=== PATIENT | female | born 1950 | race Caucasian/White ===

== ENCOUNTER → 2016-12-28 | Outpatient (CLI) | payer BC ==
[2016-12-28 13:13] LABS: Blood Urea Nitrogen 17 mg/dL (7-17); Non-African American GFR(MDRD) 50 (>60 ml/min/1.73 sqM)
--- NOTE | 2016-12-28 13:42 | CT ---
EXAMINATION TYPE: CT angio chest DATE OF EXAM: 12/28/2016 1:34 PM COMPARISON: NONE HISTORY: Shortness of breath on and off for 2-[address] DLP: 482 mGycm CONTRAST: CT chest with contrast and 3D reconstruction with MIP imaging is performed with IV Contrast, patient injected with 80 mL of Visipaque 320. Contrast-enhanced CT of the chest was performed through the course of the pulmonary arteries with jose maria g and mediastinal window settings submitted. 3D reconstruction with MIP imaging was also performed. PULMONARY ARTERIES: The pulmonary arteries and their major tributaries are patent. I do not see al dence for sizable filling defect to suggest pulmonary embolic process. LUNGS: The lungs are clear and free of infiltrate. No evidence for atelectasis. No pulmonary nodule or mass is detected. No pleural effusion. Mild upper lobe emphysematous changes seen. MEDIASTINUM: Thoracic aorta is of normal caliber . The heart is not enlarged. No evidence for media stinal mass. No mediastinal lymph nodes greater than 1cm. HILAR STRUCTURES: No evidence for mass. No hilar lymph nodes greater than 1 cm. UPPER ABDOMEN: No significant abnormality is seen. IMPRESSION: 1. No evidence for Pulmonary embolism at this time.
== END ==
LOC: RADCTMAIN 12:26
PROVIDERS: ATTEND Family Medicine
DX: R06.02 Shortness of breath (principal)
CPT/HCPCS: 82565; 84520; 71275; 36415; Q9967

== ENCOUNTER → 2017-01-07 | Outpatient (CLI) | payer BC ==
--- NOTE | 2017-01-08 08:33 | ECHOF ---
Referral Reason:I10 Essential Primary Hypertension MEASUREMENTS -------- HEIGHT: 157.5 cm WEIGHT: 63.5 kg BP: 113/58 RVIDd: 2.2 cm (< 3.3) IVSd: 1.2 cm (0.6 - 1.1) LVIDd: 2.6 cm (3.9 - 5.3) LVPWd: 1.2 cm (0.6 - 1.1) IVSs: 1.5 cm LVIDs: 1.9 cm LVPWs: 1.6 cm LA Diam: 3.1 cm (2.7 - 3.8) LAESV Index (A-L): 19.59 ml/m Ao Diam: 2.5 cm (2.0 - 3.7) AV Cusp: 1.4 cm (1.5 - 2.6) LA Diam: 2.5 cm (2.7 - 3.8) MV EXCURSION: 8.460 mm (> 18.000) MV EF SLOPE: 44 mm/s (70 - 150) EPSS: 0.5 cm MV E Ion: 0.56 m/s MV DecT: 238 ms MV A Ion: 0.92 m/s MV E/A Ratio: 0.61 RAP: 5.00 mmHg RVSP: 24.47 mmHg FINDINGS -------- Sinus rhythm. This was a technically adequate study. The left ventricular size is normal. There is borderline concentric left ventricular hypertrophy. Overall left ventricular systolic function is normal with, an EF between 55 - 60 %. The right ventricle is normal in size. Normal LA size by volume 22+/-6 ml/m2. The right atrium is normal in size. Small perimembraneous VSD Aortic valve is trileaflet and is mildly thickened. There is mild aortic regurgitation. Mild mitral annular calcification present. There is trace to mild mitral regurgitation. Trace tricuspid regurgitation present. Right ventricular systolic pressure is normal at < 35 mmHg. Trace/mild (physiologic) pulmonic regurgitation. The aortic root, ascending aorta and aortic arch are normal. Normal inferior vena cava with normal inspiratory collapse consistent with estimated right atrial pressure of 5 mmHg. There is no pericardial effusion. CONCLUSIONS -------- 1. Sinus rhythm. 2. There is trace to mild mitral regurgitation. 3. Trace tricuspid regurgitation present. 4. Right ventricular systolic pressure is normal at < 35 mmHg. 5. Trace/mild (physiologic) pulmonic regurgitation. 6. The aortic root, ascending aorta and aortic arch are normal. 7. Normal inferior vena cava with normal inspiratory collapse consistent with estimated right atrial pressure of 5 mmHg. 8. There is no pericardial effusion. 9. This was a technically adequate study. 10. There is borderline concentric left ventricular hypertrophy. 11. Overall left ventricular systolic function is normal with, an EF between 55 - 60 %. 12. Normal LA size by volume 22+/-6 ml/m2. 13. Small perimembraneous VSD 14. Aortic valve is trileaflet and is mildly thickened. 15. There is mild aortic regurgitation. 16. Mild mitral annular calcification present. SHADOW GRAPH WEIGHT OPERATOR: Wayne Brand RDCS
== END | disposition home or self-care (01) ==
LOC: RADECHMAIN 15:20
PROVIDERS: ATTEND Family Medicine
DX: I08.1 Rheumatic disorders of both mitral and tricuspid valves (principal); I10 Essential (primary) hypertension
CPT/HCPCS: 93306

== ENCOUNTER → 2017-02-10 | Outpatient (CLI) | payer BC ==
--- NOTE | 2017-02-10 11:47 | CT ---
EXAMINATION TYPE: CT abdomen pelvis wo con DATE OF EXAM: 02/10/2017 11:41 AM COMPARISON: 04/11/2015 HISTORY: LLQ pain with nausea for 2-[address] DLP: 317.3 mGycm FINDINGS: LUNG BASES: No evidence for nodule. No evidence for infiltrate. LIVER/GB: Hepatic steatosis. Cholecystectomy clips are in place. No space-occupying hepatic lesion. PANCREAS: No pancreatic mass identified. No inflammatory process seen. SPLEEN: No evidence for splenomegaly. No intrasplenic lesions seen. Splenic ADRENALS: No adrenal nodules identified. No evidence for thickening. KIDNEYS: Mild atrophic change. Kidney. No evidence for renal mass. No nephrolithiasis. No hydronephro sis. BOWEL: Appendix has a normal appearance. Mild diverticulitis involving the mid descending colon with surrounding inflammatory change. No evidence of perforation or abscess. Remainder of the colon and small bowel are within normal limits. Lymph nodes: No evidence for adenopa thy greater than 1 cm. Abdominal aorta: Atheromatous changes seen. No evidence for aneurysm. Genital organs: No significant abnormality. Other: No significant abnormality. IMPRESSION: UNCOMPLICATED DIVERTICULITIS INVOLVING THE MID DESCENDING COLON.
== END | disposition home or self-care (01) ==
LOC: RADCTMAIN 11:21
PROVIDERS: ATTEND Family Medicine
DX: K57.32 Diverticulitis of large intestine without perforation or abscess without bleeding (principal)
CPT/HCPCS: 74176

== ENCOUNTER → 2018-02-17 | Outpatient (CLI) | payer MEDICARE ==
--- NOTE | 2018-02-17 14:00 | XR ---
Right foot HISTORY: Right foot pain, trauma yesterday 3 views of the right foot. There are degenerative changes of the first metatarsophalangeal joint. There is a lucency present at the proximal fifth metatarsal. Minimal displacement of an ossific fragment. There is soft tissue swel ling. IMPRESSION: Dancer's fracture.
== END | disposition home or self-care (01) ==
LOC: RADXRMAIN 11:34
PROVIDERS: ATTEND Physician Assistant
DX: S92.351A Displaced fracture of fifth metatarsal bone, right foot, initial encounter for closed fracture (principal)

== ENCOUNTER → 2018-03-14 | Outpatient (CLI) | payer MEDICARE ==
[2018-03-14 10:56] LABS: HCT 41.8 % (34.0-46.0); HGB 13.5 gm/dL (11.4-16.0); MCH 28.3 pg (25.0-35.0); MCHC 32.2 g/dL (31.0-37.0); MCV 88.1 fL (80.0-100.0); Mean Platelet Volume 6.4; Platelet Count 451 k/uL (150-450); RBC 4.75 m/uL (3.80-5.40); WBC 7.4 k/uL (3.8-10.6)
[2018-03-14 13:06] LABS: Erythrocyte Sedimentation Rate 48 mm/hr (0-20)
== END | disposition home or self-care (01) ==
LOC: LABWHC1 10:22 → EDSTATUS 10:25
PROVIDERS: ATTEND Orthopaedic Surgery
DX: M79.671 Pain in right foot (principal); M10.9 Gout, unspecified
CPT/HCPCS: 36415; 83520; 85027; 85652; 86140; 87070; 87075; 87205

== ENCOUNTER 2018-04-06 14:29 | Emergency (ER) | payer MEDICARE ==
[2018-04-06 14:41] VITALS: RESP 18
--- NOTE | 2018-04-06 14:43 | ED ---
General Adult HPI - General Chief complaint: Extremity Problem,Nontraumatic Stated complaint: Foot Pain Time Seen by Provider: 04/06/18 14:43 Source: patient Mode of arrival: ambulatory Limitations: no limitations - History of Present Illness Initial comments: Patient is a 67-year-old female with a history of gout diagnosed a couple of months ago. She reports she was treated with colchicine which resolved her symptoms for approximately a couple of weeks however over the past day she has noted worsening redness and pain in her right great toe. She reports that this is identical to previous episode of gout. Patient denies any recent trauma or injury. She denies any associated symptoms including fevers, chills, nausea, vomiting change in activity or appetite level. She states that she was told to treat the gout with NSAIDs but felt that Excedrin worked better for her discomfort so she did not take any NSAIDs after her previous diagnosis. - Related Data Home Medications Medication Instructions Recorded Confirmed Aspirin EC [Ecotrin Low Dose] 81 mg PO HS 04/06/18 04/06/18 Calcium Carbonate [Calcium] 600 mg PO DAILY 04/06/18 04/06/18 Docusate [Colace] 100 mg PO BID 04/06/18 04/06/18 Enalapril [Vasotec] 20 mg PO BID 04/06/18 04/06/18 Multivitamins, Thera [Multivitamin 1 tab PO DAILY 04/06/18 04/06/18 (formulary)] Rosuvastatin [Crestor] 20 mg PO HS 04/06/18 04/06/18 Ubidecarenone [Co Q-10] 100 mg PO DAILY 04/06/18 04/06/18 Previous Rx's Medication Instructions Recorded Colchicine 0.6 mg PO ONCE 1 Days #1 capsule 04/06/18 Indomethacin [Indocin] 50 mg PO TID #30 capsule 04/06/18 predniSONE 40 mg PO DAILY #15 tab 04/06/18 Allergies Allergy/AdvReac Type Severity Reaction Status Date / Time gluten Allergy Unknown Verified 04/06/18 14:58 Review of Systems ROS Statement: Those systems with pertinent positive or pertinent negative responses have been documented in the HPI. ROS Other: All systems not noted in ROS Statement are negative. Past Medical History Past Medical History: Diabetes Mellitus, Hyperlipidemia, Hypertension Additional Past Medical History / Comment(s): celiac disease, gout History of Any Multi-Drug Resistant Organisms: None Reported Past Surgical History: Appendectomy, Cholecystectomy, Hysterectomy, Tubal Ligation Past Psychological History: No Psychological Hx Reported Smoking Status: Never smoker Past Alcohol Use History: None Reported Past Drug Use History: None Reported General Exam Limitations: no limitations General appearance: alert, in no apparent distress Head exam: Present: atraumatic, normocephalic Eye exam: Present: PERRL ENT exam: Present: normal exam Neck exam: Present: normal inspection Respiratory exam: Absent: respiratory distress Cardiovascular Exam: Present: regular rate GI/Abdominal exam: Present: soft. Absent: distended Rectal exam: Present: deferred Right Foot/Toe exam: Present: tenderness, swelling, erythema. Absent: crepitus, puncture wound, foreign body 1 - Erythema and tenderness Neurological exam: Present: alert, oriented X3 Psychiatric exam: Present: normal affect, normal mood Skin exam: Present: warm, dry Course Vital Signs 04/06/18 04/06/18 14:37 16:10 Temperature 97.8 F 99.0 F Pulse Rate 80 88 Respiratory 18 18 Rate Blood Pressure 172/73 158/95 O2 Sat by Pulse 98 96 Oximetry Medical Decision Making - Medical Decision Making Patient was seen and evaluated, history was obtained from the patient The patient with recent gout exacerbation treated with colchicine, advised to take NSAIDs but chose not to The patient with recurrent episode of gout No systemic symptoms or evidence of septic joint Will treat as a gouty flare, I did have an extensive conversation with the patient regarding the need to treat with NSAIDs for gout rather than treating with Excedrin. Patient expressed understanding. Given the pain the patient is experiencing I will treat with steroids as well. Patient will be given first dose of colchicine and NSAIDs in the ER and discharged with prescriptions. All questions pertaining care were answered the best my ability patient was discharged home in stable condition Disposition Clinical Impression: Gout, Gout attack Disposition: HOME SELF-CARE Condition: Good Instructions: Gout (ED) Prescriptions: Colchicine 0.6 mg PO ONCE 1 Days #1 capsule Indomethacin [Indocin] 50 mg PO TID #30 capsule predniSONE 40 mg PO DAILY #15 tab Is patient prescribed a controlled substance at d/c from ED?: No Referrals: Eder Morton MD [Primary Care Provider] - 1-2 days Time of Disposition: 15:37
[2018-04-06] MEDS ORDERED: predniSONE 20 MG TAB PO STA (15:19)
[2018-04-06] MEDS ORDERED: INDOMETHACIN 25 MG CAP PO STA (15:20)
[2018-04-06] MEDS ORDERED: COLCHICINE 0.6 MG EACH PO SCH (15:30)
[2018-04-06 16:12] VITALS: BP 158/95; PULSE 88; TEMP 99
== END 2018-04-06 16:40 | disposition home or self-care (01) ==
LOC: EC 14:29
DX: M10.9 Gout, unspecified (principal); E78.5 Hyperlipidemia, unspecified; I10 Essential (primary) hypertension; Z79.82 Long term (current) use of aspirin; Z79.899 Other long term (current) drug therapy; Z91.048 Other nonmedicinal substance allergy status
CPT/HCPCS: 99283

== ENCOUNTER → 2018-06-28 | Outpatient (CLI) | payer MEDICARE ==
--- NOTE | 2018-06-29 10:23 | XR ---
Limited cervical spine HISTORY: Chronic pain, M 99.03, M99.01 3 views of the cervical spine is submitted. No comparisons Carotid artery calcifications are present. Multilevel facet arthropathy. Spondylosis is present at C5 -6, C6-7 associated loss of disc height. Loss of normal cervical lordosis is present. C7-T1 not seen. IMPRESSION: Degenerative disc disease and facet arthropathy. Loss of lordosis could be due to muscle spasm. Additional findings above.
--- NOTE | 2018-06-29 10:26 | XR ---
Lumbar spine HISTORY: M 99.01, chronic pain, M 99.03 3 views of the lumbar spine There is a mild levoscoliosis centered at L3. Surgical clips noted incidentally the right moderate. B asilar calcifications noted in aortoiliac distribution. Sclerosis is present in the posterior element s of the lower lumbar spine. Bone mineralization is reduced. Lumbar vertebral bodies show preserved h eight and alignment. Disc spaces mildly reduced at L2-3 and possibly L3-4. IMPRESSION: Degenerative disc disease and facet arthropathy, osteopenia, mild spinal curvature. Addit ional findings above.
== END | disposition home or self-care (01) ==
LOC: RADXRMAIN 15:37
PROVIDERS: ATTEND Chiropractor
DX: M51.36 Other intervertebral disc degeneration, lumbar region (principal); M46.96 Unspecified inflammatory spondylopathy, lumbar region; M85.88 Other specified disorders of bone density and structure, other site; M43.8X6 Other specified deforming dorsopathies, lumbar region; M50.30 Other cervical disc degeneration, unspecified cervical region
CPT/HCPCS: 72040; 72100

== ENCOUNTER → 2018-10-16 | Outpatient (CLI) | payer MEDICARE ==
--- NOTE | 2018-10-18 08:06 | MM ---
Reason for exam: screening (asymptomatic). Last mammogram was performed 1 year and 1 month ago. History: Patient is postmenopausal. Benign US biopsy breast VAD RT of the right breast, August 01, 2015. Physical Findings: A clinical breast exam by your physician is recommended on an annual basis and results should be correlated with mammographic findings. MG 3D Screening Mammo W/Cad Bilateral CC and MLO view(s) were taken. Prior study comparison: September 05, 2017, bilateral MG screening mammo w CAD. September 01, 2016, bilateral MG diagnostic mammo w CAD [place]. The breast tissue is heterogeneously dense. This may lower the sensitivity of mammography. Stable benign calcifications. There is no discrete abnormality. No significant changes when compared with prior studies. ASSESSMENT: Benign, BI-RAD 2 RECOMMENDATION: Routine screening mammogram of both breasts in 1 year.
== END | disposition home or self-care (01) ==
LOC: RADMAMWWP 11:43
PROVIDERS: ATTEND Family Medicine
DX: Z12.31 Encounter for screening mammogram for malignant neoplasm of breast (principal)
CPT/HCPCS: 77063; 77067

== ENCOUNTER → 2018-11-03 | Outpatient (CLI) | payer MEDICARE ==
--- NOTE | 2018-11-03 19:12 | ECHOF ---
Referral Reason:I10 Essential primary hypertension MEASUREMENTS -------- HEIGHT: 157.5 cm WEIGHT: 62.6 kg BP: RVIDd: 2.5 cm (< 3.3) IVSd: 0.9 cm (0.6 - 1.1) LVIDd: 3.8 cm (3.9 - 5.3) LVPWd: 0.9 cm (0.6 - 1.1) IVSs: 1.2 cm LVIDs: 2.5 cm LVPWs: 1.2 cm LAESV Index (A-L): 17.40 ml/m Ao Diam: 2.7 cm (2.0 - 3.7) AV Cusp: 1.5 cm (1.5 - 2.6) LA Diam: 3.1 cm (2.7 - 3.8) EPSS: 0.6 cm MV E Ion: 0.79 m/s MV DecT: 190 ms MV A Ion: 1.04 m/s MV E/A Ratio: 0.76 AR PHT: 454 ms RAP: 5.00 mmHg RVSP: 32.06 mmHg MV EF SLOPE: 71.01 mm/s (70 - 150) MV EXCURSION: 0.97 cm (> 18.000) FINDINGS -------- Sinus rhythm. This was a technically good study. The left ventricular size is normal. Left ventricular wall thickness is normal. Overall left vent ricular systolic function is normal with, an EF between 55 - 60 %. The right ventricle is normal in size and function. Normal LA size by volume 22+/-6 ml/m2. The right atrium is normal in size. Aortic valve is trileaflet and is mildly thickened. There is mild aortic regurgitation. There is no evidence of aortic stenosis. The mitral valve leaflets are mildly thickened. Mild mitral regurgitation is present. Excess mitr al valve chordae. Trace tricuspid regurgitation present. Right ventricular systolic pressure is normal at < 35 mmHg. There is no evidence of pulmonary hypertension. Trace/mild (physiologic) pulmonic regurgitation. The aortic root size is normal. Normal inferior vena cava with normal inspiratory collapse consistent with estimated right atrial pre ssure of 5 mmHg. There is no pericardial effusion. CONCLUSIONS -------- 1. Sinus rhythm. 2. This was a technically good study. 3. The left ventricular size is normal. 4. Left ventricular wall thickness is normal. 5. Overall left ventricular systolic function is normal with, an EF between 55 - 60 %. 6. Normal LA size by volume 22+/-6 ml/m2. 7. Aortic valve is trileaflet and is mildly thickened. 8. There is mild aortic regurgitation. 9. The mitral valve leaflets are mildly thickened. 10. Mild mitral regurgitation is present. 11. Excess mitral valve chordae. 12. Trace tricuspid regurgitation present. 13. Right ventricular systolic pressure is normal at < 35 mmHg. 14. There is no evidence of pulmonary hypertension. 15. Trace/mild (physiologic) pulmonic regurgitation. 16. The aortic root size is normal. 17. There is no pericardial effusion. SIGNAL TESTER: Brian Hummel RDCS
== END | disposition home or self-care (01) ==
LOC: RADECHMAIN 12:59
PROVIDERS: ATTEND Family Medicine
DX: I08.0 Rheumatic disorders of both mitral and aortic valves (principal)
CPT/HCPCS: 93306

== ENCOUNTER → 2018-11-06 | Outpatient (CLI) | payer MEDICARE ==
--- NOTE | 2018-11-06 13:23 | ECHOS ---
STRESS ECHOCARDIOGRAM DATE OF SERVICE: 11/06/2018 INDICATIONS: Chest pain. MEDICATIONS: BASELINE HEART RATE: 71 BASELINE BLOOD PRESSURE: 171/81 MAXIMUM HEART RATE: 140 MAXIMUM BLOOD PRESSURE: 199/89 85% MPHR: 131 100% MPHR: 154 METS: 7.0 MAXIMUM STAGE REACHED: II TOTAL EXERCISE TIME: 6 minutes CLINICAL INFORMATION: STRESS DATA: Pretesting physical examination showed a heart rate of 71 pressure is 171/81 mmHg. Baseline EKG showed sinus mechanism with ST changes in the inferolateral leads. The patient exercised on the treadmill according to Willam protocol for a total of 6 minutes and achieved 7.0 METs. Max heart rate was 140 which is about 91% of maximum predicted heart rate. Maximum blood pressure was 199/89 mmHg. Clinically, the patient did not have any symptoms of chest pain or shortness of breath during the testing or on recovery. The EKG on recovery showed about 1.[address]-segment depression. ECHOCARDIOGRAM IMAGES: On echocardiogram images from parasternal long axis view, parasternal short axis view, apical 4 chamber view and apical 2 chamber view were obtained as the baseline images, at the peak of the heart rate, as well as on recovery. The echocardiogram images showed good augmentation in the left ventricular systolic function without any evidence of wall motion abnormalities concerning for ischemia. CONCLUSION: 1. Average exercise tolerance. 2. Abnormal EKG in response to exercise, likely represent the worsening baseline EKG changes. 3. Normal echocardiogram in response to exercise. MMJAKEL / IJN: [id number] /
--- NOTE | 2018-11-06 17:10 | BD ---
EXAMINATION TYPE: Axial Bone Density DATE OF EXAM: 11/06/2018 COMPARISON: 04/07/2016 CLINICAL HISTORY: 68-year-old female asymptomatic postmenopausal screening Height: 62 IN Weight: 140 LBS FRAX RISK QUESTIONS: Family History (Parent hip fracture): YES MOTHER IN HER 80'S History of Fracture in Adulthood: RT FOOT AGE 67 RISK FACTORS HISTORY OF: Family History of Osteoporosis: MOTHER Active: YES Postmenopausal woman: AGE 54 TOTAL HYSTERECTOMY Take estrogen and/or progesterone medications: NOT NOW How long: TOOK HORMONES FROM AGE [age] MEDICATIONS: Additional Medications: CALCIUM, VIT D, ENALAPRIL, CRESTOR, MULTI VIT, BABY ASPIRIN, COQ10 EXAM MEASUREMENTS: Bone mineral densitometry was performed using the [employer] System. Bone mineral density as measured about the Lumbar spine is: ----- L1-L4(G/cm2): 1.008 T Score Values are as follows: ----- L2: -1.8 ----- L3: -0.7 ----- L4: -1.2 ----- L1-L4: -1.4 Bone mineral density has: Decreased -3.0% since study of: 04/07/2016 Bone mineral density about the R hip (g/cm2): 0.801 Bone mineral density about the L hip (g/cm2): 0.773 T Score values are as follows: -----R Neck: -1.7 -----L Neck: -1.9 -----R Total: -1.0 -----L Total: -0.8 Bone mineral density has: Increased 1.8% since study of: 04/07/2016 IMPRESSION: Osteopenia (T Score between -2.5 and -1). There is slightly increased risk of fracture and the patient may be considered for treatment. Re-Screen 2-5 years. NOTE: T-SCORE=SD OF THE YOUNG ADULT MEAN.
== END | disposition home or self-care (01) ==
LOC: RADBDWWP 07:09
PROVIDERS: ATTEND Family Medicine
DX: R94.31 Abnormal electrocardiogram [ECG] [EKG] (principal); R07.9 Chest pain, unspecified; M85.80 Other specified disorders of bone density and structure, unspecified site; Z78.0 Asymptomatic menopausal state
CPT/HCPCS: 77080; 93351

== ENCOUNTER → 2018-11-24 | Outpatient (CLI) | payer MEDICARE ==
--- NOTE | 2018-11-24 11:20 | US ---
EXAMINATION TYPE: US pelvic complete DATE OF EXAM: 11/24/2018 COMPARISON: CT 2017 CLINICAL HISTORY: R10.2 Pelvic Pain. Intermittent pelvic pain x couple months, 6, para 2, mis carriage 4, complete hysterectomy 13 years ago. TECHNIQUE: . Transabdominal sonographic images of the pelvis were acquired. Date of LMP: 13 years ago EXAM MEASUREMENTS: Uterus: surgically absent Endometrial Stripe: surgically absent Right Ovary: surgically absent Left Ovary: surgically absent 1. Uterus: surgically absent 2. Endometrium: surgically absent 3. Right Ovary: surgically absent 4. Left Ovary: surgically absent 5. Bilateral Adnexa: wnl 6. Posterior cul-de-sac: wnl IMPRESSION: Post surgical change with no free fluid or adnexal mass.
== END | disposition home or self-care (01) ==
LOC: RADUSWWP 10:58
PROVIDERS: ATTEND Family Medicine
DX: R10.2 Pelvic and perineal pain (principal); Z98.890 Other specified postprocedural states
CPT/HCPCS: 76857

== ENCOUNTER → 2018-12-27 | Day surgery (SDC) | payer MEDICARE ==
[2018-12-22 15:50] VITALS: BMI 25.2
[~2018-12-27] MED LIST: LACTATED RINGERS 1,000 ML IV SCH; LIDOCAINE 1% 20 ML VIAL (10MG/ML) FOR IV START INTRADERMA PRN; LIDOCAINE 1% INJ 10MG/ML (20 ML MDV) ONE; PROPOFOL 10 MG/ML 20 ML VIAL IV ONE
--- NOTE | 2018-12-27 08:03 | P.GSHP ---
History of Present Illness H&P Date: 12/27/18 CHIEF COMPLAINT: Colon screen HISTORY OF PRESENT ILLNESS: The patient is a 68-year-old female who presents for colon screen. Lower endoscopy was offered for further evaluation and management. PAST MEDICAL HISTORY: Please see list. PAST SURGICAL HISTORY: Please see list. MEDICATIONS: Please see list. ALLERGIES: Please see list. SOCIAL HISTORY: No illicit drug use FAMILY HISTORY: No reports of Crohn disease or ulcerative colitis. REVIEW OF ORGAN SYSTEMS: CONSTITUTIONAL: No reports of fevers or chills. PHYSICAL EXAM: VITAL SIGNS: Stable GENERAL: Well-developed pleasant in no acute distress. HEENT: No scleral icterus. Extraocular movements grossly intact. Moist buccal mucosa. NECK: Supple without lymphadenopathy. CHEST: Unlabored respirations. Equal bilateral excursions. CARDIOVASCULAR: Regular rate and rhythm. Distal 2+ pulses. ABDOMEN: Soft, nontender, nondistended. MUSCULOSKELETAL: No clubbing, cyanosis, or edema. ASSESSMENT: 1. Colon screen. PLAN: 1. Recommend proceeding with a lower endoscopy Past Medical History Past Medical History: Diabetes Mellitus, Hyperlipidemia, Hypertension Additional Past Medical History / Comment(s): Diet controlled diabetic, states last HgbA1C was 6.3, celiac disease, gout History of Any Multi-Drug Resistant Organisms: None Reported Past Surgical History: Appendectomy, Cholecystectomy, Hysterectomy, Tubal Ligation Additional Past Surgical History / Comment(s): COLONOSCOPY Past Anesthesia/Blood Transfusion Reactions: No Reported Reaction Smoking Status: Former smoker - Past Family History Father Family Medical History: Cancer Medications and Allergies Home Medications Medication Instructions Recorded Confirmed Type Aspirin EC [Ecotrin Low Dose] 81 mg PO HS 04/06/18 12/22/18 History Enalapril [Vasotec] 20 mg PO BID 04/06/18 12/22/18 History Multivitamins, Thera [Multivitamin 1 tab PO DAILY 04/06/18 12/22/18 History (formulary)] Rosuvastatin [Crestor] 20 mg PO HS 04/06/18 12/22/18 History Ubidecarenone [Co Q-10] 100 mg PO DAILY 04/06/18 12/22/18 History Calcium & Vitamin D 1 tab PO DAILY 12/22/18 History Cholecalciferol (Vitamin D3) 2,000 unit PO DAILY 12/22/18 12/22/18 History [Vitamin D3] Allergies Allergy/AdvReac Type Severity Reaction Status Date / Time gluten Allergy GI ISSUES Verified 12/22/18 15:33 R/T CELIAC
[2018-12-27 08:14] VITALS: RESP 16; TEMP 98
[2018-12-27 08:16] LABS: Glucose,Whole Blood 138 mg/dL (75-99)
--- NOTE | 2018-12-27 08:51 | P.PCN ---
Date of Procedure: 12/27/18 Description of Procedure: PREOPERATIVE DIAGNOSIS: Previous history of colon polyps Colonoscopy screening POSTOPERATIVE DIAGNOSIS: Previous history of colon polyps Colonoscopy screening Severe sigmoid diverticulosis with stricture at 30 cm External hemorrhoids. OPERATION: Colonoscopy to the sigmoid colon. SURGEON: Silvana Ugarte MD. ANESTHESIA: MAC. INDICATIONS: The patient is a 68-year-old female who presents for colonoscopy screening. Her last colonoscopy was more than 5 years ago. Benefits and risks were described and informed consent was obtained. DESCRIPTION OF PROCEDURE: The patient had undergone Gatorade, MiraLAX and Dulcolax prep. She had been brought into the operating room and laid in the left lateral decubitus position. After adequate intravenous sedation, the rectum was examined with 2% lidocaine jelly. External hemorrhoids were encountered. The rectal tone was loose. No lesions were palpated in the rectal vault. An adult Olympus colonoscope was advanced along the rectum to a very tortuous sigmoid colon. The scope was then exchanged for a pediatric colonoscope. Despite multiple maneuvers, the sigmoid colon had severe tortuosity preventing further advancement of scope. The scope was passed to 20 to 30 cm from the anal verge. No evidence of polyps were identified. As the patient posed high risk for perforation with persistence of the procedure, the procedure was discontinued. The colon was desufflated. The patient had tolerated the procedure well. Withdrawal time was over 6 minutes. FINDINGS: [place] preparation quality scale 1 (1-5) Tortuous sigmoid colon with stricture preventing further advancement of the scope. External prolapsed hemorrhoids. Scope advanced to sigmoid colon at 30 cm. No arteriovenous malformations. No adenomatous polyps. No focal colitis. RECOMMENDATIONS: Completion of colonoscopy evaluation with barium enema. Plan - Discharge Summary Discharge Rx Participant: No New Discharge Prescriptions: No Action Rosuvastatin [Crestor] 20 mg PO HS Multivitamins, Thera [Multivitamin (formulary)] 1 tab PO DAILY Enalapril [Vasotec] 20 mg PO BID Aspirin EC [Ecotrin Low Dose] 81 mg PO HS Ubidecarenone [Co Q-10] 100 mg PO DAILY Cholecalciferol (Vitamin D3) [Vitamin D3] 2,000 unit PO DAILY Calcium & Vitamin D 1 tab PO DAILY Discharge Medication List Aspirin EC [Ecotrin Low Dose] 81 mg PO HS 04/06/18 [History] Enalapril [Vasotec] 20 mg PO BID 04/06/18 [History] Multivitamins, Thera [Multivitamin (formulary)] 1 tab PO DAILY 04/06/18 [History] Rosuvastatin [Crestor] 20 mg PO HS 04/06/18 [History] Ubidecarenone [Co Q-10] 100 mg PO DAILY 04/06/18 [History] Calcium & Vitamin D 1 tab PO DAILY 12/22/18 [History] Cholecalciferol (Vitamin D3) [Vitamin D3] 2,000 unit PO DAILY 12/22/18 [History] Follow up Appointment(s)/Referral(s): Silvana Ugarte MD [STAFF PHYSICIAN] - 01/23/19 Patient Instructions/Handouts: Diverticulosis (DC), Barium Enema (DC), *Surgery [facility] - (Anesthesia) Endoscopy Discharge Instructions Activity/Diet/Wound Care/Special Instructions: Will need barium enema for completion colonoscopy Discharge Disposition: HOME SELF-CARE
[2018-12-27 09:28] VITALS: BP 161/79; PULSE 72
--- NOTE | 2018-12-27 11:40 | FL ---
EXAMINATION TYPE: FL barium enema w air contrast DATE OF EXAM: 12/27/2018 COMPARISON: CT abdomen and pelvis February 10, 2017 HISTORY: Incomplete colonoscopy TECHNIQUE: A double contrast barium enema study is performed. Total of 2 minutes 40 seconds of fluor oscopic time was utilized during procedure. 22 spot images are obtained. FINDINGS: Radius Corner Machine Operator view of the abdomen shows overall non-obstructive bowel gas pattern. Cholecystectomy clips are redemonstrated. Patient had lots of pain during enema study but contrast was successfully passed retrograde fashion t o the cecum. Evaluation suboptimal as patient has extensive diverticulosis particularly involving the sigmoid colon, in addition multiple spasms are identified during real-time performance. Appendix is not filled consistent with history of appendectomy. There is reflux of contrast into terminal ileum m aking evaluation suboptimal due to overlap. There is no obvious constricting lesion. Evaluation for p olyps is suboptimal due to above limitations particularly at level of sigmoid colon. No obvious signi ficant stricture is seen. IMPRESSION: Suboptimal study without constricting lesion or neoplasm present. Prominent sigmoid colo maryam diverticulosis redemonstrated.
== END | disposition home or self-care (01) ==
LOC: ORWHC2ENDO 07:45
PROVIDERS: ATTEND Surgery Plastic and Reconstructive Surgery
DX: Z12.11 Encounter for screening for malignant neoplasm of colon (principal); K56.699 Other intestinal obstruction unspecified as to partial versus complete obstruction; K57.30 Diverticulosis of large intestine without perforation or abscess without bleeding; K64.4 Residual hemorrhoidal skin tags; E11.9 Type 2 diabetes mellitus without complications; E78.5 Hyperlipidemia, unspecified; I10 Essential (primary) hypertension; K90.0 Celiac disease; M10.9 Gout, unspecified; Z79.82 Long term (current) use of aspirin; Z86.010 Personal history of colon polyps; Z87.891 Personal history of nicotine dependence
CPT/HCPCS: 74280; 45330; J2001; J2704; 45378

== ENCOUNTER → 2019-03-12 | Outpatient (CLI) | payer MEDICARE ==
[2019-03-12 15:33] LABS: Albumin 4.5 g/dL (3.5-5.0); Calcium 9.9 mg/dL (8.4-10.2); Potassium 4.4 mmol/L (3.5-5.1); Total Bilirubin 0.4 mg/dL (0.2-1.3); Total Protein 7.1 g/dL (6.3-8.2)
[2019-03-12 16:24] LABS: HCT 39.5 % (34.0-46.0); HGB 13.2 gm/dL (11.4-16.0); MCH 29.1 pg (25.0-35.0); MCHC 33.3 g/dL (31.0-37.0); MCV 87.3 fL (80.0-100.0); Mean Platelet Volume 7.3; Platelet Count 260 k/uL (150-450); RBC 4.53 m/uL (3.80-5.40); RDW 13.4 % (11.5-15.5); WBC 4.9 k/uL (3.8-10.6)
== END | disposition home or self-care (01) ==
LOC: LABPAT 14:26
PROVIDERS: ATTEND Surgery Plastic and Reconstructive Surgery
DX: K57.32 Diverticulitis of large intestine without perforation or abscess without bleeding (principal)
CPT/HCPCS: 36415; 80053; 85027; 86850; 86900; 86901

== ENCOUNTER 2019-05-02 17:30 | Inpatient (IN) | payer MEDICARE ==
--- NOTE | 2019-05-02 18:10 | ED ---
Abdominal Pain HPI - General Chief Complaint: Abdominal Pain Stated Complaint: Colon issues Time Seen by Provider: 05/02/19 17:59 Source: patient Mode of arrival: ambulatory Limitations: no limitations - History of Present Illness Initial Comments: 69-year-old female being sent by her surgeon for surgery prep. Patient has a history of extensive diverticulosis for which she will be having a colon resection on Tuesday. States he has a history of poor bowel prep secondary to her abnormal bowel movements. This is made it difficult for them to do colono scopies in the past. Currently denies any pain symptoms. She states her last bowel movement was yesterday. - Related Data Home Medications Medication Instructions Recorded Confirmed Enalapril [Vasotec] 20 mg PO BID 04/06/18 05/02/19 Rosuvastatin [Crestor] 20 mg PO HS 04/06/18 05/02/19 Ubidecarenone [Co Q-10] 100 mg PO DAILY 04/06/18 05/02/19 Calcium & Vitamin D 1 tab PO DAILY 12/22/18 05/02/19 Cholecalciferol (Vitamin D3) 2,000 unit PO DAILY 12/22/18 05/02/19 [Vitamin D3] DULoxetine HCL [Cymbalta] 60 mg PO HS 03/08/19 05/02/19 Vitamin B Complex 1 cap PO DAILY 05/02/19 05/02/19 Allergies Allergy/AdvReac Type Severity Reaction Status Date / Time gluten Allergy GI ISSUES Verified 05/02/19 18:36 R/T CELIAC Review of Systems ROS Statement: Those systems with pertinent positive or pertinent negative responses have been documented in the HPI. Review of Systems Constitutional: Denies fever, chills Eyes: Denies change in vision, Denies pain Ears, nose, mouth, throat: Denies headaches, Denies sore throat Cardiovascular: Denies chest pain. Denies palpitations Respiratory: Denies shortness of breath, Denies cough Gastrointestinal: Denies abdominal pain. Denies nausea, vomiting, diarrhea. Genitourinary: Denies hematuria, Denies infections Musculoskeletal: Denies pain, Denies swelling Integumentary: Denies rash Neurological: Denies headache, focal weakness, focal numbness Psychiatric: Denies anxiety, Denies depression Hematologic/Lymphatic: Denies easy bleeding or bruising ROS Other: All systems not noted in ROS Statement are negative. Past Medical History Past Medical History: Diabetes Mellitus, GERD/Reflux, Hyperlipidemia, Hypertension Additional Past Medical History / Comment(s): celiac disease, gout, diverticulitis, diet control diabetic, History of Any Multi-Drug Resistant Organisms: None Reported Past Surgical History: Appendectomy, Cholecystectomy, Ear Surgery, Hysterectomy, Tubal Ligation Additional Past Surgical History / Comment(s): rt ear surgery graft Past Anesthesia/Blood Transfusion Reactions: Motion Sickness Additional Past Anesthesia/Blood Transfusion Reaction / Comment(s): "i go under deeper" Past Psychological History: Anxiety Smoking Status: Former smoker Past Alcohol Use History: None Reported Past Drug Use History: None Reported - Past Family History Father Family Medical History: Cancer Mother Family Medical History: Congestive Heart Failure (CHF), Coronary Artery Disease (CAD), Diabetes Mellitus, Hyperlipidemia General Exam - General Exam Comments Initial Comments: General: Awake, alert, No acute Distress HENT: Normocephalic. Atraumatic Eyes: PERRL. EOMI. No scleral icterus. No injected conjunctiva Neck: Full ROM Chest/Lungs: Clear to auscultation bilaterally. No wheezing, rhonchi, or rales Cardiac: Regular rate, rhythm. No murmurs or rubs Abdomen/GI: Soft, nontender, nondistended. No rebound, guarding, or rigidity. Musculoskeletal: Full ROM Skin: Warm, dry, intact Neurologic: A/Ox3, no weakness, no sensory deficit, no abnormal gait, no coordination deficit Limitations: no limitations Course Vital Signs 05/02/19 05/02/19 17:34 19:03 Temperature 98 F Pulse Rate 77 67 Respiratory 18 18 Rate Blood Pressure 153/86 137/69 O2 Sat by Pulse 98 96 Oximetry Medical Decision Making - Medical Decision Making 79-year-old female presenting for admission. Initial exam the patient is awake, alert, no acute distress. VSS. Was sent in by Dr. Ugarte she's had difficulty with bowel for the past is currently scheduled for a colon resection this Tuesday. Dr. Ugarte who asked me to place her on IV fluids. Currently stable for transfer to floor. - Lab Data Result diagrams: 05/02/19 18:15 05/02/19 18:15 Disposition Clinical Impression: Chronic generalized abdominal pain Disposition: ADMITTED IP TO THIS HOSP Is patient prescribed a controlled substance at d/c from ED?: No Decision to Admit Reason: Admit from EC Decision Date: 05/02/19 Decision Time: 18:15
[2019-05-02] MEDS ORDERED: NALOXONE 0.4 MG/ML 1 ML VIAL IV PRN (18:13)
[2019-05-02] MEDS ORDERED: ACETAMINOPHEN TAB 325 MG TAB PO PRN (18:13)
[2019-05-02 18:33] LABS: Basophils % (A) 1 %; Eosinophils # (A) 0.2 k/uL (0-0.7); Eosinophils % (A) 4 %; HCT 41.6 % (34.0-46.0); HGB 13.9 gm/dL (11.4-16.0); Lymphocytes # (A) 1.8 k/uL (1.0-4.8); Lymphocytes % (A) 28 %; MCH 29.3 pg (25.0-35.0); MCHC 33.4 g/dL (31.0-37.0); MCV 87.7 fL (80.0-100.0); Mean Platelet Volume 6.7; Monocytes # (A) 0.5 k/uL (0-1.0); Monocytes % (A) 8 %; Neutrophils # (A) 3.7 k/uL (1.3-7.7); Neutrophils % (A) 57 %; Platelet Count 290 k/uL (150-450); RBC 4.74 m/uL (3.80-5.40); RDW 13.2 % (11.5-15.5); WBC 6.4 k/uL (3.8-10.6)
[2019-05-02 18:45] LABS: Prothrombin Time 10.7 sec (9.0-12.0)
[2019-05-02 18:46] LABS: Calcium 10.9 mg/dL (8.4-10.2); Potassium 4.2 mmol/L (3.5-5.1)
[2019-05-02] MEDS: SODIUM CHLORIDE 0.9% 1,000 ML IV SCH (19:00)
[2019-05-02 20:01] LABS: Glucose,Whole Blood 100 mg/dL (75-99)
[2019-05-02] MEDS ORDERED: ATORVASTATIN 40 MG TAB PO SCH (21:30)
[2019-05-02] MEDS ORDERED: LISINOPRIL 20 MG TAB PO STA (22:20)
[2019-05-02] MEDS ORDERED: CRESTOR 20 MG PO SCH (22:21)
[2019-05-02] MEDS: DULoxetine HCL 60 MG CAPSULE.DR PO SCH (22:26)
[2019-05-03] MEDS: ONDANSETRON 4 MG/2 ML VIAL IVP PRN ×2 (00:32→12:05)
[2019-05-03] MEDS: SODIUM CHLORIDE 0.9% 1,000 ML IV SCH ×5 (00:34→12:05)
[2019-05-03 07:05] LABS: Glucose,Whole Blood 106 mg/dL (75-99)
[2019-05-03] MEDS ORDERED: POLYETHYLENE GLYCOL LYTES SOLN 4,000 ML SOLN.RECON PO ONE (08:36)
[2019-05-03] MEDS ORDERED: Antibiotics per Pharmacy 1 EACH MISC MISCELLANE PRN ×2 (08:36→17:26)
[2019-05-03] MEDS ORDERED: NON FORMULARY DRUG (Vitamin B Complex [Vitamin B Complex] 1 CAP) PO SCH (09:00)
[2019-05-03] MEDS ORDERED: LISINOPRIL 20 MG TAB PO SCH (09:00)
[2019-05-03] MEDS ORDERED: CALCIUM CARB-VIT D 500MG-200UN 1 EACH TAB PO SCH (09:00)
[2019-05-03] MEDS ORDERED: NON FORMULARY DRUG (Ubidecarenone [Co Q-10] 100 MG) PO SCH (09:00)
[2019-05-03] MEDS ORDERED: CHOLECALCIFEROL 1,000 UNIT TAB PO SCH (09:00)
[2019-05-03] MEDS ORDERED: ENALAPRIL 20 MG PO SCH (10:00)
[2019-05-03 11:29] LABS: Glucose,Whole Blood 104 mg/dL (75-99)
--- NOTE | 2019-05-03 12:34 | P.PN ---
<Ricarda Cool Naomie - Last Filed: 05/03/19 12:32> Subjective Progress Note Date: 05/03/19 CHIEF COMPLAINT: History of diverticulitis HISTORY OF PRESENT ILLNESS: 69-year-old female who is scheduled for low anterior resection tomorrow with Dr. Ugarte secondary to history of diverticulitis. Patient examined this morning at the bedside. She denies abdominal pain. She reports feeling constipated. Tolerating clear liquid diet. Denies nausea or vomiting. PHYSICAL EXAM: VITAL SIGNS: Currently stable. GENERAL: Well-developed in no acute distress. HEENT: No sclera icterus. Extraocular movements grossly intact. Moist buccal mucosa. Head is atraumatic, normocephalic. Hears conversational speech. No nasal drainage. NECK: Supple without lymphadenopathy. CHEST: Non-labored respirations and equal bilateral excursions. CARDIOVASCULAR: Regular rate with regular rhythm. Palpable 2+ radial pulses. ABDOMEN: Soft. Nondistended. Nontender. MUSCULOSKELETAL: No clubbing, cyanosis or edema. NEUROLOGIC: No focal or lateralizing signs. Cranial nerves II through XII grossly intact. PSYCH: Appropriate affect. Alert and oriented to person, place and time. SKIN: Well perfused. Good skin turgor. ASSESSMENT: 1. History of diverticulitis PLAN: 1. Continue clear liquid diet for today. Nothing by mouth at midnight 2. 2 L normal saline bolus. Continue maintenance IV fluids 3. Enhanced bowel prep today including Nulytely, Flagyl, and Neomycin 4. Patient to undergo low anterior resection tomorrow with Dr. Ugarte Nurse practitioner note has been reviewed by physician. Signing provider agrees with the documented findings, assessment, and plan of care. Objective - Vital Signs Vital signs: Vital Signs Temp 97.4 F L 05/03/19 07:00 Pulse 74 05/03/19 07:00 Resp 17 05/03/19 07:00 BP 145/73 05/03/19 07:00 Pulse Ox 98 05/03/19 07:00 Intake & Output 05/02/19 05/03/19 05/03/19 18:59 06:59 18:59 Intake Total 250 Balance 250 Weight 58.967 kg Intake: Oral 250 Other: Voiding Method Toilet # Voids 0 - Labs CBC & Chem 7: 05/02/19 18:15 05/02/19 18:15 Labs: Abnormal Lab Results - Last 24 Hours (Table) 05/02/19 05/02/19 05/03/19 Range/Units 18:15 19:49 07:03 BUN 35 H (7-17) mg/dL Glucose 112 H (74-99) mg/dL POC Glucose (mg/dL) 100 H 106 H (75-99) mg/dL Calcium 10.9 H (8.4-10.2) mg/dL 05/03/19 Range/Units 11:18 BUN (7-17) mg/dL Glucose (74-99) mg/dL POC Glucose (mg/dL) 104 H (75-99) mg/dL Calcium (8.4-10.2) mg/dL <Silvana Ugarte N - Last Filed: 05/03/19 17:46> Subjective Principal diagnosis: Benefits and risks of the procedure described. Will repeat BMP. Bowel prep described. Objective - Vital Signs Vital signs: Vital Signs Temp 98.0 F 05/03/19 14:21 Pulse 70 05/03/19 14:21 Resp 17 05/03/19 14:21 BP 167/74 05/03/19 14:21 Pulse Ox 100 05/03/19 14:21 Intake & Output 05/02/19 05/03/19 05/03/19 18:59 06:59 18:59 Intake Total 250 1040 Balance 250 1040 Weight 58.967 kg Intake: Intake, IV Titration 900 Amount Sodium Chloride 0.9% 1, 800 000 ml @ 100 mls/hr IV . Q10H [facility] Rx#:[id number] metroNIDAZOLE-NS PMX 500 100 mg In Saline 1 100ml.bag @ 100 mls/hr IVPB TID@ 1300,1400,2300 [facility] Rx#: [id number] Oral 250 140 Other: Voiding Method Toilet # Voids 0 2 - Labs CBC & Chem 7: 05/02/19 18:15 05/03/19 14:59 Labs: Abnormal Lab Results - Last 24 Hours (Table) 05/02/19 05/02/19 05/03/19 Range/Units 18:15 19:49 07:03 Chloride (98-107) mmol/L BUN 35 H (7-17) mg/dL Glucose 112 H (74-99) mg/dL POC Glucose (mg/dL) 100 H 106 H (75-99) mg/dL Calcium 10.9 H (8.4-10.2) mg/dL 05/03/19 05/03/19 Range/Units 11:18 14:59 Chloride 110 H (98-107) mmol/L BUN (7-17) mg/dL Glucose (74-99) mg/dL POC Glucose (mg/dL) 104 H (75-99) mg/dL Calcium (8.4-10.2) mg/dL Assessment and Plan (1) Sigmoid volvulus Current Visit: Yes Status: Acute Code(s): K56.2 - VOLVULUS SNOMED Code(s): 370490120 (2) Intractable nausea and vomiting Current Visit: Yes Status: Acute Code(s): R11.2 - NAUSEA WITH VOMITING, UNSPECIFIED SNOMED Code(s): 420579511 (3) Celiac disease Current Visit: Yes Status: Acute Code(s): K90.0 - CELIAC DISEASE SNOMED Code(s): 445509710 (4) Diabetes type 2, controlled Current Visit: Yes Status: Acute Code(s): E11.9 - TYPE 2 DIABETES MELLITUS WITHOUT COMPLICATIONS SNOMED Code(s): 01484130 (5) Hyperlipidemia Current Visit: Yes Status: Acute Code(s): E78.5 - HYPERLIPIDEMIA, UNSPECIFIED SNOMED Code(s): 42767375 (6) Depressive disorder Current Visit: Yes Status: Acute Code(s): F32.9 - MAJOR DEPRESSIVE DISORDER, SINGLE EPISODE, UNSPECIFIED SNOMED Code(s): 50262600 (7) Hypertensive heart disease Current Visit: Yes Status: Acute Code(s): I11.9 - HYPERTENSIVE HEART DISEASE WITHOUT HEART FAILURE SNOMED Code(s): 58639824
[2019-05-03] MEDS ORDERED: metroNIDAZOLE 500 MG TAB PO SCH ×2 (13:00→23:00)
--- NOTE | 2019-05-03 13:08 | P.CONS ---
History of Present Illness - Reason for Consult Recommendations regarding antihypertensive medications - History of Present Illness His is a pleasant 69-year-old female admitted for scheduled low anterior res ection for significant diverticulitis chronic abdominal pain from diverticulitis patient at this time does have some pain bit constipated no diarrhea no nausea vomiting no fever or chills. Patient is presently on cefazolin and metronidazole which is being continued patient takes SARINA inhibitor at home patient is presently on lisinopril 40 twice a day which is a very high-dose and this will be held to prevent perioperative hypotension. Patient is low operative risk for laparotomy and bowel resection and patient function status is is good. denied any history of smoking Review of Systems REVIEW OF SYSTEMS: CONSTITUTIONAL: No fever, no malaise, no fatigue. HEENT: No recent visual problems or hearing problems. Denied any sore throat. CARDIOVASCULAR: No chest pain, orthopnea, PND, no palpitations, no syncope. PULMONARY: No shortness of breath, no cough, no hemoptysis. GASTROINTESTINAL: No diarrhea, no nausea, no vomiting, no abdominal pain. NEUROLOGICAL: No headaches, no weakness, no numbness. HEMATOLOGICAL: Denies any bleeding or petechiae. GENITOURINARY: Denies any burning micturition, frequency, or urgency. MUSCULOSKELETAL/RHEUMATOLOGICAL: Denies any joint pain, swelling, or any muscle pain. ENDOCRINE: Denies any polyuria or polydipsia. The rest of the 14-point review of systems is negative. Past Medical History Past Medical History: Diabetes Mellitus, GERD/Reflux, Hyperlipidemia, Hypertension Additional Past Medical History / Comment(s): celiac disease, gout, diverti culitis, diet control diabetic, History of Any Multi-Drug Resistant Organisms: None Reported Past Surgical History: Appendectomy, Cholecystectomy, Ear Surgery, Hysterectomy, Tubal Ligation Additional Past Surgical History / Comment(s): rt ear surgery graft Past Anesthesia/Blood Transfusion Reactions: Motion Sickness Additional Past Anesthesia/Blood Transfusion Reaction / Comm: "i go under deeper" Past Psychological History: Anxiety Smoking Status: Former smoker Past Alcohol Use History: None Reported Past Drug Use History: None Reported - Past Family History Father Family Medical History: Cancer Additional Family Medical History / Comment(s): neck and thoart cancer Mother Family Medical History: Congestive Heart Failure (CHF), Coronary Artery Disease (CAD), Diabetes Mellitus, Hyperlipidemia Medications and Allergies Home Medications Medication Instructions Recorded Confirmed Type Enalapril [Vasotec] 20 mg PO BID 04/06/18 05/02/19 History Rosuvastatin [Crestor] 20 mg PO HS 04/06/18 05/02/19 History Ubidecarenone [Co Q-10] 100 mg PO DAILY 04/06/18 05/02/19 History Calcium & Vitamin D 1 tab PO DAILY 12/22/18 05/02/19 History Cholecalciferol (Vitamin D3) 2,000 unit PO DAILY 12/22/18 05/02/19 History [Vitamin D3] DULoxetine HCL [Cymbalta] 60 mg PO HS 03/08/19 05/02/19 History Vitamin B Complex 1 cap PO DAILY 05/02/19 05/02/19 History Allergies Allergy/AdvReac Type Severity Reaction Status Date / Time gluten Allergy GI ISSUES Verified 05/02/19 18:36 R/T CELIAC Physical Exam Vitals: Vital Signs Temp Pulse Pulse Resp BP BP Pulse Ox 05/03/19 07:00 97.4 F L 74 17 145/73 98 05/03/19 04:06 18 05/03/19 02:53 97.7 F 71 18 155/67 98 05/03/19 00:35 16 05/02/19 20:18 98.0 F 60 17 107/64 93 L 05/02/19 19:40 16 05/02/19 19:03 67 18 137/69 96 05/02/19 17:34 98 F 77 18 153/86 98 Intake and Output 05/02/19 05/03/19 05/03/19 22:59 06:59 14:59 Intake Total 250 Balance 250 Intake: Oral 250 Other: Voiding Method Toilet Toilet # Voids 2 0 Weight 58.967 kg PHYSICAL EXAMINATION: GENERAL: The patient is alert and oriented x3, not in any acute distress. Well developed, well nourished. HEENT: Pupils are round and equally reacting to light. EOMI. No scleral icterus. No conjunctival pallor. Normocephalic, atraumatic. No pharyngeal erythema. No thyromegaly. CARDIOVASCULAR: S1 and S2 present. No murmurs, rubs, or gallops. PULMONARY: Chest is clear to auscultation, no wheezing or crackles. ABDOMEN: Soft, minimal tenderness in the left lower quadrant, nondistended, normoactive bowel sounds. No palpable organomegaly. MUSCULOSKELETAL: No joint swelling or deformity. EXTREMITIES: No cyanosis, clubbing, or pedal edema. NEUROLOGICAL: Gross neurological examination did not reveal any focal deficits. SKIN: No rashes. Results CBC & Chem 7: 05/02/19 18:15 05/02/19 18:15 Labs: Abnormal Lab Results - Last 24 Hours (Table) 05/02/19 05/02/19 05/03/19 Range/Units 18:15 19:49 07:03 BUN 35 H (7-17) mg/dL Glucose 112 H (74-99) mg/dL POC Glucose (mg/dL) 100 H 106 H (75-99) mg/dL Calcium 10.9 H (8.4-10.2) mg/dL 05/03/19 Range/Units 11:18 BUN (7-17) mg/dL Glucose (74-99) mg/dL POC Glucose (mg/dL) 104 H (75-99) mg/dL Calcium (8.4-10.2) mg/dL Assessment and Plan Plan: -Hypertension: Patient is expected to have low blood pressure postoperatively because of which I'll hold off on 9 lisinopril at this time. -Diverticulitis: Patient will undergo low anterior resection and hemicolectomy tomorrow and patient will be continued on ceftezole and and metronidazole -Gastroesophageal reflux disease - hyperlipidemia: Continue with the statin -Depression continue with Loxitane
[2019-05-03] MEDS: NEOMYCIN 500 MG TAB PO SCH ×3 (13:39→23:10)
[2019-05-03] MEDS: metroNIDAZOLE-NS PMX 500 MG in SALINE 1 100ML.BAG IVPB SCH ×3 (13:39→23:17)
[2019-05-03 15:28] LABS: Calcium 9.9 mg/dL (8.4-10.2); Potassium 4.5 mmol/L (3.5-5.1)
[2019-05-03] MEDS ORDERED: ONDANSETRON 4 MG/2 ML VIAL IVP PRN (15:36)
[2019-05-03] MEDS: HEPARIN SODIUM,PORCINE 5,000 UNIT/ML 1 ML VIAL SQ SCH ×2 (16:35→23:11)
[2019-05-03 16:57] LABS: Glucose,Whole Blood 97 mg/dL (75-99)
--- NOTE | 2019-05-03 17:45 | P.GSHP ---
History of Present Illness H&P Date: 05/02/19 CHIEF COMPLAINT: Abdominal pain HISTORY OF PRESENT ILLNESS: The patient is a 69-year-old female who comes in with new left lower quadrant abdominal pain of dull and crampy in nature. In the past, she had attempted colonoscopy but was unsuccessful given the severity of volvulus of sigmoid colon. Barium enema confirmed moderate redundancy of sigmoid colon. She recently developed acute nausea and vomiting after being on antibiotics. She has history of diabetes type 2 well-controlled. She also reports celiac disease and being on a specialty diet. No reports of fevers or chills. She is also on a high protein shake diet for last 2 weeks. As a result of her abdominal pain including new nausea and vomiting, she has been admitted. PAST M.ICAL HISTORY: See list. PAST SURGICAL HISTORY: See list. MEDICATIONS: See list. ALLERGIES: See list. SOCIAL HISTORY: No illicit drug use FAMILY HISTORY: No reports of Crohn's disease or inflammatory bowel disease REVIEW OF ORGAN SYSTEMS: CONSTITUTIONAL: No fevers or chills. No recent weight loss. EYES: Denies any trouble with vision. No glasses. HEENT: No difficulties with hearing. No nosebleeds. No difficulty swallowing. RESPIRATORY: Denies pneumonia. Denies any troubles with breathing or dyspnea on exertion. CARDIOVASCULAR: Denies any chest pain, palpitations, or recent heart attacks. GASTROINTESTINAL: Denies fatty food intolerance. Has change in bowel habits and gas bloat. GENITOURINARY: Denies any blood in urine or increased urinary frequency. NEUROLOGICAL: Denies any numbness or tingling along the distal extremities. No seizure disorders or headaches. MUSCULOSKELETAL: Has back pain, stiffness or joint arthritis. SKIN: No current skin cancer. No rash. PSYCHIATRIC: Denies current depression or suicidal thoughts. ENDOCRINE: Denies current thyroid disorders. Has blood sugar glucose intolerance. HEME/LYMPHATIC: Denies any lumps and bumps around the neck. No recent deep venous thrombosis. ALLERGY/IMMUNOLOGY: No immunoglobulin therapy. No immune deficiencies. BREAST: Denies current breast lumps, pain or nipple discharge. PHYSICAL EXAM: VITALS: Reviewed CONSTITUTIONAL: Well developed and in no acute distress. EYES: Conjuctivae without sclera icterus. Pupils are equally round and reactive to light. Extraocular movements grossly intact. HEAD, EARS, NOSE, THROAT: Moist buccal mucosa. Head is atraumatic, normocephalic. Hears conversational speech. No nasal drainage. NECK: Supple. No JV distention. No thyroidomegaly. RESPIRATORY: Non-labored respirations and equal bilateral excursions. No gross wheezes. CARDIOVASCULAR: Regular rate and rhythm. Extremities without moderate edema. Palpable 2+ radial pulses. ABDOMEN: No hepatomegaly. Soft. No peritonitis. LYMPH: No neck lymphadenopathy. No axillary lymphadenopathy. MUSCULOSKELETAL: Range of motion bilateral upper extremities within normal limits. Nail and fingers with good capillary refill. SKIN: Warm and well perfused with good skin turgor. NEUROLOGIC: Cranial nerves I through XII grossly intact. Sensation upper and extremities intact. No focal or lateralizing signs. PSYCH: Appropriate affect. Alert and oriented to person, place and time. Displays appropriate insight. CLINCAL LABS: Reviewed. Elevated creatinine and BUN. ASSESSMENT: 1. Left lower quadrant abdominal pain with nausea and vomiting 2. History of sigmoid volvulus 3. Diabetes type 2, uncontrolled 4. Hypertensive heart disease 5. Celiac disease PLAN: 1. Recommend IV fluid hydration as well as labs demonstrate dehydration 2. Will need repeat CBC and BMP for elevated creatinine after IV fluid hydration 2 L normal saline 3. Enhance colon recovery program reviewed including bowel prep. Antiemetics for nausea. 4. After correction of elevated creatinine and dehydration, patient scheduled to undergo sigmoid colon resection via robotic-assisted 5. Benefits and risks of surgery were reviewed in detail for which she is increased risk with diabetes type 2, hypertensive heart disease Past Medical History Past Medical History: Diabetes Mellitus, GERD/Reflux, Hyperlipidemia, Hypertension Additional Past Medical History / Comment(s): celiac disease, gout, diver ticulitis, diet control diabetic, History of Any Multi-Drug Resistant Organisms: None Reported Past Surgical History: Appendectomy, Cholecystectomy, Ear Surgery, Hysterectomy, Tubal Ligation Additional Past Surgical History / Comment(s): rt ear surgery graft Past Anesthesia/Blood Transfusion Reactions: Motion Sickness Additional Past Anesthesia/Blood Transfusion Reaction / Comment(s): "i go under deeper" Past Psychological History: Anxiety Smoking Status: Former smoker Past Alcohol Use History: None Reported Past Drug Use History: None Reported - Past Family History Father Family Medical History: Cancer Additional Family Medical History / Comment(s): neck and thoart cancer Mother Family Medical History: Congestive Heart Failure (CHF), Coronary Artery Disease (CAD), Diabetes Mellitus, Hyperlipidemia Medications and Allergies Home Medications Medication Instructions Recorded Confirmed Type Enalapril [Vasotec] 20 mg PO BID 04/06/18 05/02/19 History Rosuvastatin [Crestor] 20 mg PO HS 04/06/18 05/02/19 History Ubidecarenone [Co Q-10] 100 mg PO DAILY 04/06/18 05/02/19 History Calcium & Vitamin D 1 tab PO DAILY 12/22/18 05/02/19 History Cholecalciferol (Vitamin D3) 2,000 unit PO DAILY 12/22/18 05/02/19 History [Vitamin D3] DULoxetine HCL [Cymbalta] 60 mg PO HS 03/08/19 05/02/19 History Vitamin B Complex 1 cap PO DAILY 05/02/19 05/02/19 History Allergies Allergy/AdvReac Type Severity Reaction Status Date / Time gluten Allergy GI ISSUES Verified 05/02/19 18:36 R/T CELIAC Surgical - Exam Vital Signs Temp Pulse Resp BP Pulse Ox 98 F 77 18 153/86 98 05/02/19 17:34 05/02/19 17:34 05/02/19 17:34 05/02/19 17:34 05/02/19 17:34 Results - Labs 05/02/19 18:15 05/03/19 14:59 Abnormal Lab Results - Last 24 Hours (Table) 05/02/19 05/02/19 05/03/19 Range/Units 18:15 19:49 07:03 Chloride (98-107) mmol/L BUN 35 H (7-17) mg/dL Glucose 112 H (74-99) mg/dL POC Glucose (mg/dL) 100 H 106 H (75-99) mg/dL Calcium 10.9 H (8.4-10.2) mg/dL 05/03/19 05/03/19 Range/Units 11:18 14:59 Chloride 110 H (98-107) mmol/L BUN (7-17) mg/dL Glucose (74-99) mg/dL POC Glucose (mg/dL) 104 H (75-99) mg/dL Calcium (8.4-10.2) mg/dL Diabetes panel 05/02/19 05/03/19 Range/Units 18:15 14:59 Sodium 139 143 (137-145) mmol/L Potassium 4.2 4.5 (3.5-5.1) mmol/L Chloride 103 110 H (98-107) mmol/L Carbon Dioxide 27 24 (22-30) mmol/L BUN 35 H 17 (7-17) mg/dL Creatinine 1.03 0.88 (0.52-1.04) mg/dL Glucose 112 H 98 (74-99) mg/dL Calcium 10.9 H 9.9 (8.4-10.2) mg/dL Calcium panel 05/02/19 05/03/19 Range/Units 18:15 14:59 Calcium 10.9 H 9.9 (8.4-10.2) mg/dL Pituitary panel 05/02/19 05/03/19 Range/Units 18:15 14:59 Sodium 139 143 (137-145) mmol/L Potassium 4.2 4.5 (3.5-5.1) mmol/L Chloride 103 110 H (98-107) mmol/L Carbon Dioxide 27 24 (22-30) mmol/L BUN 35 H 17 (7-17) mg/dL Creatinine 1.03 0.88 (0.52-1.04) mg/dL Glucose 112 H 98 (74-99) mg/dL Calcium 10.9 H 9.9 (8.4-10.2) mg/dL Adrenal panel 05/02/19 05/03/19 Range/Units 18:15 14:59 Sodium 139 143 (137-145) mmol/L Potassium 4.2 4.5 (3.5-5.1) mmol/L Chloride 103 110 H (98-107) mmol/L Carbon Dioxide 27 24 (22-30) mmol/L BUN 35 H 17 (7-17) mg/dL Creatinine 1.03 0.88 (0.52-1.04) mg/dL Glucose 112 H 98 (74-99) mg/dL Calcium 10.9 H 9.9 (8.4-10.2) mg/dL Assessment and Plan (1) Sigmoid volvulus Current Visit: Yes Status: Acute Code(s): K56.2 - VOLVULUS SNOMED Code(s): 094267608 (2) Intractable nausea and vomiting Current Visit: Yes Status: Acute Code(s): R11.2 - NAUSEA WITH VOMITING, UNSPECIFIED SNOMED Code(s): 738812341 (3) Celiac disease Current Visit: Yes Status: Acute Code(s): K90.0 - CELIAC DISEASE SNOMED Code(s): 065166773 (4) Diabetes type 2, controlled Current Visit: Yes Status: Acute Code(s): E11.9 - TYPE 2 DIABETES MELLITUS WITHOUT COMPLICATIONS SNOMED Code(s): 50531097 (5) Hyperlipidemia Current Visit: Yes Status: Acute Code(s): E78.5 - HYPERLIPIDEMIA, UNSPECIF IED SNOMED Code(s): 63536947 (6) Depressive disorder Current Visit: Yes Status: Acute Code(s): F32.9 - MAJOR DEPRESSIVE DISORDER, SINGLE EPISODE, UNSPECIFIED SNOMED Code(s): 41561675 (7) Hypertensive heart disease Current Visit: Yes Status: Acute Code(s): I11.9 - HYPERTENSIVE HEART DISEASE WITHOUT HEART FAILURE SNOMED Code(s): 95322848
[2019-05-03 18:04] LABS: INR 1.1 (<1.2); Prothrombin Time 11.5 sec (9.0-12.0)
[2019-05-03] MEDS ORDERED: DEXAMETHASONE SOD PHOSPHATE 10 MG/ML 1 ML VIAL IV PRN (18:35)
[2019-05-03] MEDS ORDERED: SODIUM CHLORIDE 0.9% 1,000 ML IV ONE (18:39)
[2019-05-03] MEDS: ONDANSETRON 4 MG/2 ML VIAL IVP SCH ×2 (19:04→23:04)
[2019-05-03 20:15] LABS: Glucose,Whole Blood 98 mg/dL (75-99)
[2019-05-03] MEDS: DULoxetine HCL 60 MG CAPSULE.DR PO SCH (20:46)
[2019-05-03] MEDS ORDERED: TEMAZEPAM 15 MG CAP PO ONE (21:00)
[2019-05-03] MEDS ORDERED: ROSUVASTATIN 20MG TAB PO SCH (21:00)
[2019-05-03] MEDS: metroNIDAZOLE-NS PMX 500 MG in SALINE 1 100ML.BAG IVPB ONE (23:15)
[2019-05-04] MEDS: SODIUM CHLORIDE 0.9% 1,000 ML IV SCH ×3 (00:50→23:32)
[2019-05-04] MEDS: metroNIDAZOLE-NS PMX 500 MG in SALINE 1 100ML.BAG IVPB ONE (04:39)
[2019-05-04] MEDS: ONDANSETRON 4 MG/2 ML VIAL IVP SCH ×3 (06:21→23:32)
[2019-05-04 07:19] LABS: Glucose,Whole Blood 113 mg/dL (75-99)
[2019-05-04] MEDS ORDERED: ALVIMOPAN 12 MG CAPSULE PO ONE (08:00)
[2019-05-04] MEDS ORDERED: ACETAMINOPHEN TAB 500 MG TAB PO ONE (08:00)
[2019-05-04] MEDS: PANTOPRAZOLE 40 MG/10 ML VIAL IVP SCH (08:34)
[2019-05-04 09:20] LABS: Basophils % (A) 0 %; Eosinophils % (A) 0 %; HCT 38.7 % (34.0-46.0); HGB 12.8 gm/dL (11.4-16.0); Lymphocytes # (A) 0.7 k/uL (1.0-4.8); Lymphocytes % (A) 10 %; MCH 29.2 pg (25.0-35.0); MCV 88.3 fL (80.0-100.0); Mean Platelet Volume 7.3; Monocytes # (A) 0.2 k/uL (0-1.0); Monocytes % (A) 3 %; Neutrophils # (A) 6.1 k/uL (1.3-7.7); Neutrophils % (A) 86 %; Platelet Count 244 k/uL (150-450); RBC 4.38 m/uL (3.80-5.40); RDW 14.7 % (11.5-15.5); WBC 7.1 k/uL (3.8-10.6)
[2019-05-04 09:32] LABS: Calcium 9.1 mg/dL (8.4-10.2); Potassium 4.3 mmol/L (3.5-5.1); Total Bilirubin 0.2 mg/dL (0.2-1.3); Total Protein 6.6 g/dL (6.3-8.2)
[2019-05-04 11:52] LABS: Glucose,Whole Blood 92 mg/dL (75-99)
[2019-05-04] MEDS ORDERED: LACTATED RINGERS 1,000 ML IV ONE ×4 (11:53→19:04)
[2019-05-04] MEDS ORDERED: MIDAZOLAM PF (FBP) 2 MG/2 ML VIAL IVP ONE (12:34)
[2019-05-04] MEDS ORDERED: fentaNYL (PF) 50 MCG/ML 2 ML AMP IVP ONE (12:35)
[2019-05-04] MEDS ORDERED: DEXAMETHASONE SOD PHOSPHATE 10 MG/ML 1 ML VIAL IV ONE (12:42)
[2019-05-04] MEDS: HEPARIN SODIUM,PORCINE 5,000 UNIT/ML 1 ML VIAL SQ SCH ×3 (12:56→23:34)
[2019-05-04] MEDS ORDERED: GLYCOPYRROLATE 0.2 MG/ML 2 ML VIAL ONE (13:25)
[2019-05-04] MEDS ORDERED: VECURONIUM 10 MG VIAL IV ONE (13:25)
[2019-05-04] MEDS ORDERED: LABETALOL 5 MG/ML VIAL MDV ONE (13:25)
[2019-05-04] MEDS ORDERED: NEOSTIGMINE 1 MG/ML 10 ML VIAL ONE (13:25)
[2019-05-04] MEDS ORDERED: LIDOCAINE 1% INJ 10MG/ML (20 ML MDV) ONE (13:25)
[2019-05-04] MEDS ORDERED: PROPOFOL 10 MG/ML 20 ML VIAL IV ONE (13:25)
--- NOTE | 2019-05-04 13:36 | P.HPADDEND ---
H&P Addendum H&P Addendum Date: 05/04/19 Patient seen and evaluated. She reports cloudy liquid stools despite undergoing prep. She has known history of sigmoid stricture from diverticulitis. Increased risk for temporary colostomy bag and open procedure also reviewed which patient and family understood and agreed to proceed with surgery. Perry otic-assisted sigmoid colectomy with possible open technique including ostomy creation reviewed.
[2019-05-04] MEDS ORDERED: diphenhydrAMINE 50 MG/ML 1 ML VIAL IVP PRN (13:50)
[2019-05-04] MEDS ORDERED: NALOXONE 0.4 MG/ML 1 ML VIAL IV PRN (13:50)
[2019-05-04] MEDS ORDERED: BUPIVACAIN-EPI 0.25%-1:200,000 30 ML VIAL SQ ONE (14:16)
[2019-05-04] MEDS ORDERED: metroNIDAZOLE-NS PMX 500 MG in SALINE 1 100ML.BAG IVPB ONE (14:30)
--- NOTE | 2019-05-04 16:16 | P.PN ---
Subjective Patient will undergo atilio-colectomy for diverticular distress Constitutional: Denied any fatigue denied any fever. Cardio vascular: denied any chest pain, palpitations Gastrointestinal denied any nausea vomiting Pulmonary: Denied any shortness of breath cough Neurologic denied any new focal deficits All inpatient medications were reviewed and appropriate changes in these medications as dictated in the interval history and assessment and plan. Objective - Vital Signs Vital signs: Vital Signs Temp 97.3 F L 05/04/19 11:23 Pulse 93 05/04/19 12:51 Resp 18 05/04/19 12:51 BP 140/64 05/04/19 12:51 Pulse Ox 95 05/04/19 12:51 Intake & Output 05/03/19 05/04/19 05/04/19 18:59 06:59 18:59 Intake Total 1240 2200 1450 Balance 1240 2200 1450 Intake: IV 1450 Intake, IV Titration 900 2200 Amount Sodium Chloride 0.9% 1, 800 1200 000 ml @ 100 mls/hr IV . Q10H [facility] Rx#:[id number] Sodium Chloride 0.9% 1, 1000 000 ml @ 999 mls/hr IV . Q1H1M ONE Rx#:[id number] metroNIDAZOLE-NS PMX 500 100 mg In Saline 1 100ml.bag @ 100 mls/hr IVPB TID@ 1300,1400,2300 [facility] Rx#: [id number] Oral 340 Other: Voiding Method Toilet # Voids 2 3 - Exam PHYSICAL EXAMINATION: GENERAL: The patient is alert and oriented x3, not in any acute distress. Well developed, well nourished. HEENT: Pupils are round and equally reacting to light. EOMI. No scleral icterus. No conjunctival pallor. Normocephalic, atraumatic. No pharyngeal erythema. No thyromegaly. CARDIOVASCULAR: S1 and S2 present. No murmurs, rubs, or gallops. PULMONARY: Chest is clear to auscultation, no wheezing or crackles. ABDOMEN: Soft, minimal tenderness in the left lower quadrant, nondistended, normoactive bowel sounds. No palpable organomegaly. MUSCULOSKELETAL: No joint swelling or deformity. EXTREMITIES: No cyanosis, clubbing, or pedal edema. NEUROLOGICAL: Gross neurological examination did not reveal any focal deficits. SKIN: No rashes. - Labs CBC & Chem 7: 05/04/19 08:08 05/04/19 08:08 Labs: Abnormal Lab Results - Last 24 Hours (Table) 05/04/19 05/04/19 05/04/19 Range/Units 07:14 08:08 08:08 Lymphocytes # 0.7 L (1.0-4.8) k/uL Chloride 109 H (98-107) mmol/L Carbon Dioxide 21 L (22-30) mmol/L Glucose 100 H (74-99) mg/dL POC Glucose (mg/dL) 113 H (75-99) mg/dL Assessment and Plan Plan: -Hypertension: Patient is expected to have low blood pressure postoperatively because of which I'll hold off on lisinopril at this time. -Diverticulitis: Patient will undergo low anterior resection and hemicolectomy tomorrow and patient will be continued on ceftezole and and metronidazole -Gastroesophageal reflux disease - hyperlipidemia: Continue with the statin -Depression continue with Loxitane
[2019-05-04] MEDS: ROPIVACAINE 250 MG, HYDROMORPHONE (PF) 5 MG in SODIUM CHLORIDE 0.9% 200 ML EPIDURAL PRN (19:50)
[2019-05-04 19:52] LABS: Glucose,Whole Blood 148 mg/dL (75-99)
[2019-05-04] MEDS ORDERED: METOCLOPRAMIDE 5 MG/ML 2 ML VIAL IVP PRN (19:59)
[2019-05-04] MEDS ORDERED: BENZOCAINE/MENTHOL LOZENG 1 EACH LOZENGE MUCOUS MEM PRN (19:59)
--- NOTE | 2019-05-04 19:59 | P.OP ---
Date of Procedure: 05/04/19 Description of Procedure: SURGEON: RAMONA DELATORRE MD PREOPERATIVE DIAGNOSES: 1. Large bowel obstruction due to sigmoid stricture from diverticulitis 2. Hypertensive heart disease 3. Diabetes type 2, controlled 4. Celiac disease 5. Depressive disorder 6. Gastroesophageal reflux disease 7. Hyperlipidemia 8. Gout POSTOPERATIVE DIAGNOSES: 1. Large bowel obstruction due to sigmoid stricture from diverticulitis 2. Hypertensive heart disease 3. Diabetes type 2, controlled 4. Celiac disease 5. Depressive disorder 6. Gastroesophageal reflux disease 7. Hyperlipidemia 8. Gout 9. Peritoneal adhesions greater omentum to abdominal wall midabdomen OPERATION: 1. Robotic-assisted daVinci Xi laparoscopic extensive lysis of adhesions over 2 hours 2. Robotic-assisted daVinci Xi laparoscopic low anterior resection 3. Intraoperative sigmoidoscopy Anesthesia: GETA, local, epidural ESTIMATED BLOOD LOSS: 30 mL SPECIMENS REMOVED: Sigmoid colon. COMPLICATIONS: None. Condition: stable Disposition: floor FINDINGS: 1. Greater omentum adherent to the mid abdominal wall prohibiting view of the pelvis with lysis of adhesions required 2. Severe adhesions sigmoid colon to pelvis from previous hysterectomy requiring extensive lysis of adhesions 3. Aronchick 4 bowel prep with presence of moderate liquid stools and colon and rectum 4. Sigmoid colon stricture at 30 cm resected with lower anterior resection 5. EEA anastomosis using 25 mm circular stapler with 6 - 60 mm linear Sureform staplers used including black and green loads 6. Console time 185 minutes INDICATIONS: The patient is a 69-year-old female who presents with intermittent large bowel obstruction due to sigmoid colon stricture from sigmoid diverticulitis. Separately, she has history of nausea and vomiting including abdominal pain. She underwent enhanced colon recovery program but still had cloudy stools. Benefits and risks, including infection, bowel injury, ureteral injury, colostomy creation and possibility for additional surgery was discussed at length. Informed consent was obtained. All questions of the patient and family were answered. DESCRIPTION: Earlier the patient had undergone a bowel prep using the enhanced colon recovery program. The patient was transferred to the operating room onto a split leg table and repositioned to modified lithotomy following intubation. A Irizarry catheter was placed. The abdomen was then prepped and draped in standard sterile fashion as Ioban was placed along the abdomen to minimize any contamination of skin floor. After a timeout protocol was performed, attention was then brought to the left upper quadrant whereby a 0 degree 5 mm laparoscopic trocar entry was performed. The abdominal cavity was entered and insufflated to 15 mmHg pressure, which she tolerated well. Diagnostic laparoscopy confirmed severe phlegmon incorporating the left pelvis as the left ovary was secured. Next an robotic 8-mm trocar was placed along right lateral abdominal wall 20 cm superior from the pelvis. A 12 mm stapler port was placed along the right upper quadrant. Ports were placed 10 cm apart from each other including 15-20 cm away from the target anatomy of the left pelvis. The 5-mm port was exchanged for a 8 mm robotic port. A 12-mm port was arranged along left lateral abdominal wall. The patient was then placed in Trendelenburg position, at least 16. The robotic da Virgen XI system was primed. The robot was docked from the left side of the patient. Using atraumatic graspers and vessel sealer, the robotic system was docked and primed as described. Instruments were interchanged by the therapeutic recreation assistant including scissors, needle concrete mixer truck driver, robotic stapler and vessel sealer. The robot stapler was prepared along the right lateral abdominal wall. Severe greater omentum to abdominal wall adhesions were found of the epigastrium and lower abdomen prohibiting few the rest of the pelvis. Using vessel sealer, peritoneal adhesions involving greater omentum was taken down for lysis of adhesions. The sigmoid colon was densely adherent to the left lateral abdominal wall. Separately highly redundant sigmoid colon was also found densely adherent deep into the pelvis at the patient's previous hysterectomy site. Next, attention was brought to identify the sigmoid colon. For mobilization of the sigmoid colon, combination of blunt including sharp dissection was performed using hook cautery and vessel sealer. The left colon was mobilized from the left abdominal wall towards the pelvis. Extensive and careful dissection was performed without injury to the bladder or usual anatomical landmarks of the ureter. Extensive lysis of adhesions occurred well over 2 hours to avoid injury to the ureter, bladder as described. After dissection, sigmoid stricture was confirmed within the proposed specimen. I went to the foot of the bed to perform a sigmoidoscopy to prepare for resection distal to the sigmoid stricture. A sizer was used along the rectum and a 25 mm EEA stapler was selected. I re-scrubbed into the case. Via the left upper lateral port, a 25 mm anvil was entered into the abdominal cavity after placing a stay suture through the green plastic hussain which was attached to the anvil. The trocar was re-docked. The distal resection at the sigmoid colon was resected using 60 mm black including green loads. Next, a colotomy was performed for placement of the 25 mm anvil proximal to the proposed colectomy. The anvil was placed along the descending colon and the specimen was resected along the sigmoid colon. The sigmoid mesentery was divided using vessel sealer and hemostatic. I went to the foot of the bed for insertion of the EEA via the rectum. Remnant sigmoid colon was identified where I re-scrubbed into the case and additional resection was performed for a lower anterior resection using additional 60 mm green and black loads with the robot. The staple line was completely hemostatic. The 25 mm anvil was brought out through the proximal staple line and the green hussain was removed. The robot was undocked. The anvil and 25 mm stapler were mated and fired for 1 minute. The staple line was hemostatic. The pelvis was irrigated with normal saline solution by the therapeutic recreation assistant. I went to the foot of the bed to perform a sigmoidoscopy where the scope was advanced to the staple line and visualized. The staple line hemostatic. The leak test was negative. All needles and sponges were removed from the abdominal cavity. Via the left upper lateral incision 12 mm port site, the incision was widened to 4 cm for removal of the specimen. The fascial defect was oversewn using 0 Vicryl and a Jaleel Tian. All incisions were copiously irrigated using dilute normal saline and hydrogen peroxide mixture. Next all pneumoperitoneum was evacuated from the abdominal cavity. The 8-mm trocar sites were reapproximated using 4-0 Monocryl in an interrupted subcuticular fashion. Local anesthetic was infiltrated to all wounds for postop analgesia. All incisions were also cleansed with diluted hydrogen peroxide. An Optifoam surgical dressing was placed over the colon extraction site. Liquid glue was applied to the rest of the skin incisions. The patient was extubated successfully. Intraoperative photos were reviewed with the patient's family who were overall pleased with the level of care. The patient was transferred to the postanesthesia care unit in stable condition. COMPLEXITY: Additional 2 hours of extensive lysis of adhesions used for the severity of diverticulitis including scarring from previous hysterectomy with sigmoid colon densely adherent to pelvis including greater omentum adhered to the abdominal wall.
[2019-05-04] MEDS ORDERED: SODIUM CHLORIDE 0.9% 1,000 ML IV ONE (20:00)
[2019-05-04] MEDS: metroNIDAZOLE-NS PMX 500 MG in SALINE 1 100ML.BAG IVPB SCH (23:08)
[2019-05-05] MEDS: metroNIDAZOLE-NS PMX 500 MG in SALINE 1 100ML.BAG IVPB SCH ×3 (04:49→18:43)
[2019-05-05] MEDS: ONDANSETRON 4 MG/2 ML VIAL IVP SCH ×5 (05:30→22:49)
[2019-05-05 07:11] LABS: Basophils % (A) 0 %; Eosinophils % (A) 0 %; HCT 38.8 % (34.0-46.0); HGB 12.3 gm/dL (11.4-16.0); Lymphocytes % (A) 8 %; MCH 28.4 pg (25.0-35.0); MCHC 31.7 g/dL (31.0-37.0); MCV 89.5 fL (80.0-100.0); Mean Platelet Volume 6.3; Monocytes # (A) 0.7 k/uL (0-1.0); Monocytes % (A) 5 %; Neutrophils # (A) 11.3 k/uL (1.3-7.7); Neutrophils % (A) 86 %; Platelet Count 234 k/uL (150-450); RBC 4.33 m/uL (3.80-5.40); RDW 13.5 % (11.5-15.5); WBC 13.2 k/uL (3.8-10.6)
[2019-05-05 07:25] LABS: Albumin 3.5 g/dL (3.5-5.0); Total Bilirubin 0.4 mg/dL (0.2-1.3); Total Protein 5.9 g/dL (6.3-8.2)
[2019-05-05] MEDS: HEPARIN SODIUM,PORCINE 5,000 UNIT/ML 1 ML VIAL SQ SCH ×3 (08:40→22:49)
[2019-05-05] MEDS: PANTOPRAZOLE 40 MG/10 ML VIAL IVP SCH (08:40)
[2019-05-05] MEDS: ALVIMOPAN 12 MG CAPSULE PO SCH ×2 (08:45→20:41)
[2019-05-05] MEDS ORDERED: LISINOPRIL 20 MG TAB PO SCH ×2 (09:00→21:00)
--- NOTE | 2019-05-05 10:58 | P.PN ---
Subjective Progress Note Date: 05/05/19 CHIEF COMPLAINT: Diverticulitis with large bowel obstruction HISTORY OF PRESENT ILLNESS: The patient is a 69-year-old female status post low anterior resection for diverticulitis and sigmoid stricture. "I feel great!" She has no pain. She already had 3 bowel movements and passed flatus as confirmed with her nurse. Intraoperative details including severity of adhesions also reviewed. She has an epidural. No nausea. No vomiting. She is tolerating ice ships. Urine is clear. ROS: No reports of nausea and vomiting. Had bowel movements. No fevers or chills. No new chest pain. No productive sputum PHYSICAL EXAM: VITAL SIGNS: Reviewed CONSTITUTIONAL: Well developed and in no acute distress. EYES: Conjuctivae without sclera icterus. Extraocular movements grossly intact. HEAD, EARS, NOSE, THROAT: Moist buccal mucosa. Head is atraumatic, normocephalic. Hears conversational speech. No nasal drainage. NECK: Supple. No thyroidomegaly. RESPIRATORY: Non-labored respirations and equal bilateral excursions. CARDIOVASCULAR: Palpable 2+ radial pulses. ABDOMEN: Incisions clean dry and intact. Soft. No peritonitis. MUSCULOSKELETAL: No gross deformity of the lower extremities noted. No c lubbing. No cyanosis. SKIN: Good skin turgor. Well perfused. NEUROLOGIC: Cranial nerves I through XII grossly intact. No focal or lateralizing signs. PSYCH: Appropriate affect. Alert and oriented to person, place and time. : Irizarry present and clear. CLINCAL LABS: White blood cell count over 13,000 ASSESSMENT: 1. Sigmoid diverticulitis with large bowel obstruction PLAN: 1. Remove epidural tomorrow morning. 2. Start clear liquid diet 3. Pain management reviewed where she does not want narcotics. She is in agreement with Tylenol and Motrin 4. Start Flomax for preventive ostructive uropathy. 5. Anticipated discharge in 24 to 48 hrs 6. Continue antibiotcs for poor bowel prep. Objective - Vital Signs Vital signs: Vital Signs Temp 98.3 F 05/05/19 08:49 Pulse 92 05/05/19 08:49 Resp 16 05/05/19 08:49 BP 171/78 05/05/19 08:49 Pulse Ox 91 L 05/05/19 08:49 Intake & Output 05/04/19 05/05/19 05/05/19 18:59 06:59 18:59 Intake Total 2650 696 Output Total 420 500 Balance 2230 196 Intake: IV 2650 696 Output: Urine 390 500 Estimated Blood Loss 30 Other: Voiding Method Toilet Indwelling Catheter - Labs CBC & Chem 7: 05/05/19 06:49 05/05/19 06:49 Labs: Abnormal Lab Results - Last 24 Hours (Table) 05/04/19 05/05/19 05/05/19 Range/Units 19:49 06:49 06:49 WBC 13.2 H (3.8-10.6) k/uL Neutrophils # 11.3 H (1.3-7.7) k/uL Glucose 119 H (74-99) mg/dL POC Glucose (mg/dL) 148 H (75-99) mg/dL Total Protein 5.9 L (6.3-8.2) g/dL Assessment and Plan (1) Sigmoid volvulus Current Visit: Yes Status: Acute Code(s): K56.2 - VOLVULUS SNOMED Code(s): 859576127 (2) Intractable nausea and vomiting Current Visit: Yes Status: Acute Code(s): R11.2 - NAUSEA WITH VOMITING, UNSPECIFIED SNOMED Code(s): 383601531 (3) Celiac disease Current Visit: Yes Status: Acute Code(s): K90.0 - CELIAC DISEASE SNOMED Code(s): 054874112 (4) Diabetes type 2, controlled Current Visit: Yes Status: Acute Code(s): E11.9 - TYPE 2 DIABETES MELLITUS WITHOUT COMPLICATIONS SNOMED Code(s): 82480051 (5) Hyperlipidemia Current Visit: Yes Status: Acute Code(s): E78.5 - HYPERLIPIDEMIA, UNSPECIFIED SNOMED Code(s): 65704316 (6) Depressive disorder Current Visit: Yes Status: Acute Code(s): F32.9 - MAJOR DEPRESSIVE DISORDER, SINGLE EPISODE, UNSPECIFIED SNOMED Code(s): 99794048 (7) Hypertensive heart disease Current Visit: Yes Status: Acute Code(s): I11.9 - HYPERTENSIVE HEART DISEASE WITHOUT HEART FAILURE SNOMED Code(s): 90562404 (8) Diverticulitis of sigmoid colon Current Visit: Yes Status: Acute Code(s): K57.32 - DVTRCLI OF LG INT W/O PERFORATION OR ABSCESS W/O BLEEDING SNOMED Code(s): 455271466 (9) Large bowel obstruction Current Visit: Yes Status: Acute Code(s): K56.609 - UNSP INTESTNL OBST, UNSP TO PARTIAL VERSUS COMPLETE OBST SNOMED Code(s): 623883536 (10) Stricture of sigmoid colon Current Visit: Yes Status: Acute Code(s): K56.699 - OTHER INTESTNL OBST UNSP TO PARTIAL VERSUS COMPLETE OBST SNOMED Code(s): 5066557 (11) S/P colectomy Current Visit: Yes Status: Acute Code(s): Z90.49 - ACQUIRED ABSENCE OF OTHER SPECIFIED PARTS OF DIGESTIVE TRACT SNOMED Code(s): 824674712
[2019-05-05] MEDS: SODIUM CHLORIDE 0.9% 1,000 ML IV SCH ×3 (11:26→22:53)
[2019-05-05 11:49] LABS: Glucose,Whole Blood 136 mg/dL (75-99)
--- NOTE | 2019-05-05 12:36 | P.PN ---
Subjective Patient will undergo atilio-colectomy for diverticular distress 05/05/2019 Patient underwent a hemicolectomy in 2 an anastomosis, clinically doing well. Constitutional: Denied any fatigue denied any fever. Cardio vascular: denied any chest pain, palpitations Gastrointestinal denied any nausea vomiting Pulmonary: Denied any shortness of breath cough Neurologic denied any new focal deficits All inpatient medications were reviewed and appropriate changes in these medications as dictated in the interval history and assessment and plan. Objective - Vital Signs Vital signs: Vital Signs Temp 98.3 F 05/05/19 08:49 Pulse 92 05/05/19 08:49 Resp 16 05/05/19 08:49 BP 171/78 05/05/19 08:49 Pulse Ox 91 L 05/05/19 08:49 Intake & Output 05/04/19 05/05/19 05/05/19 18:59 06:59 18:59 Intake Total 2650 696 Output Total 420 500 500 Balance 2230 196 -500 Intake: IV 2650 696 Output: Urine 390 500 500 Estimated Blood Loss 30 Other: Voiding Method Toilet Indwelling Catheter - Exam PHYSICAL EXAMINATION: GENERAL: The patient is alert and oriented x3, not in any acute distress. Well developed, well nourished. HEENT: Pupils are round and equally reacting to light. EOMI. No scleral icterus. No conjunctival pallor. Normocephalic, atraumatic. No pharyngeal erythema. No thyromegaly. CARDIOVASCULAR: S1 and S2 present. No murmurs, rubs, or gallops. PULMONARY: Chest is clear to auscultation, no wheezing or crackles. ABDOMEN: Soft, minimal tenderness in the left lower quadrant, nondistended, normoactive bowel sounds. No palpable organomegaly. MUSCULOSKELETAL: No joint swelling or deformity. EXTREMITIES: No cyanosis, clubbing, or pedal edema. NEUROLOGICAL: Gross neurological examination did not reveal any focal deficits. SKIN: No rashes. - Labs CBC & Chem 7: 05/05/19 06:49 05/05/19 06:49 Labs: Abnormal Lab Results - Last 24 Hours (Table) 05/04/19 05/05/19 05/05/19 Range/Units 19:49 06:49 06:49 WBC 13.2 H (3.8-10.6) k/uL Neutrophils # 11.3 H (1.3-7.7) k/uL Glucose 119 H (74-99) mg/dL POC Glucose (mg/dL) 148 H (75-99) mg/dL Total Protein 5.9 L (6.3-8.2) g/dL 05/05/19 Range/Units 11:38 WBC (3.8-10.6) k/uL Neutrophils # (1.3-7.7) k/uL Glucose (74-99) mg/dL POC Glucose (mg/dL) 136 H (75-99) mg/dL Total Protein (6.3-8.2) g/dL Assessment and Plan Plan: -Hypertension: is onLasix is better her blood pressure is bit elevated will increase the dose of Lasix she may need a different medication like amlodipinedistally -Diverticulitis:status post hemicolectomy with end-to-end anastomosis, still remains on metronidazole and ceftezole and -Gastroesophageal reflux disease - hyperlipidemia: Continue with the statin -Depression continue with Loxitane
[2019-05-05 16:57] LABS: Glucose,Whole Blood 126 mg/dL (75-99)
[2019-05-05] MEDS ORDERED: TAMSULOSIN 0.4 MG CAP.ER.24H PO SCH (18:30)
--- NOTE | 2019-05-05 19:41 | P.PN ---
Progress Note - Text Progress Note Date: 05/05/19 Postoperative day #1 status post robotic low anterior resection ,/epidural catheter placed for postoperative analgesia, patient doing well epidural site okay, patient currently on combination of epidural infusion solution of Ropivacaine 0.0625% and Dilaudid 20 g per mL the infusion rate at 6 ml per hour , patient had no motor deficit epidural site okay , vital signs stable ,VAS 0 /10 , Assessment and plan= post operative day #1 patient doing well ,pain well controlled , there is no anesthesia related complications
[2019-05-05] MEDS: ENALAPRIL 20MG TABLET PO SCH (20:58)
[2019-05-05 21:31] LABS: Glucose,Whole Blood 125 mg/dL (75-99)
[2019-05-05] MEDS: ROPIVACAINE 250 MG, HYDROMORPHONE (PF) 5 MG in SODIUM CHLORIDE 0.9% 200 ML EPIDURAL PRN (22:49)
[2019-05-06] MEDS: ONDANSETRON 4 MG/2 ML VIAL IVP SCH ×3 (06:02→11:50)
[2019-05-06 07:05] LABS: Basophils % (A) 0 %; Eosinophils % (A) 0 %; HGB 12.2 gm/dL (11.4-16.0); Lymphocytes # (A) 0.9 k/uL (1.0-4.8); Lymphocytes % (A) 10 %; MCH 29.6 pg (25.0-35.0); MCHC 33.8 g/dL (31.0-37.0); MCV 87.4 fL (80.0-100.0); Mean Platelet Volume 6.7; Monocytes # (A) 0.5 k/uL (0-1.0); Monocytes % (A) 5 %; Neutrophils # (A) 8.1 k/uL (1.3-7.7); Neutrophils % (A) 84 %; Platelet Count 219 k/uL (150-450); RBC 4.12 m/uL (3.80-5.40); WBC 9.6 k/uL (3.8-10.6)
[2019-05-06 07:06] LABS: Glucose,Whole Blood 112 mg/dL (75-99)
[2019-05-06 07:19] LABS: Albumin 3.3 g/dL (3.5-5.0); Calcium 8.5 mg/dL (8.4-10.2); Potassium 3.3 mmol/L (3.5-5.1); Total Bilirubin 0.5 mg/dL (0.2-1.3); Total Protein 5.5 g/dL (6.3-8.2)
[2019-05-06] MEDS: ALVIMOPAN 12 MG CAPSULE PO SCH (08:15)
[2019-05-06] MEDS: ENALAPRIL 20MG TABLET PO SCH (08:16)
[2019-05-06] MEDS: PANTOPRAZOLE 40 MG/10 ML VIAL IVP SCH (08:16)
[2019-05-06] MEDS: HEPARIN SODIUM,PORCINE 5,000 UNIT/ML 1 ML VIAL SQ SCH (08:16)
[2019-05-06] MEDS ORDERED: POTASSIUM CHLORIDE ER 20 MEQ TAB.ER PO STA (08:52)
[2019-05-06] MEDS ORDERED: LISINOPRIL 20 MG TAB PO SCH ×2 (09:00→11:15)
[2019-05-06] MEDS ORDERED: METOPROLOL TARTRATE 25 MG TAB PO SCH (09:15)
[2019-05-06] MEDS ORDERED: PIPERACILLIN-TAZOBACTAM 3.375 GM in SODIUM CHLORIDE 0.9% 100 ML IVPB SCH (09:15)
[2019-05-06] MEDS ORDERED: 0.9% NACL WITH KCL 40 MEQ/L 1,000 ML IV SCH (10:00)
[2019-05-06 12:06] LABS: Glucose,Whole Blood 130 mg/dL (75-99)
[2019-05-06 13:17] VITALS: BMI 23.8
--- NOTE | 2019-05-06 13:38 | P.PN ---
Subjective Patient will undergo atilio-colectomy for diverticular distress 05/05/2019 Patient underwent a hemicolectomy in 2 an anastomosis, clinically doing well. 05/06/2019 Patient has highly elevated blood pressures secondary to IV fluids IV fluids will be discontinued patient will be started back on her SARINA inhibitor metoprolol will be switched to Coreg. Same thing was discussed with the primary service Gen. surgery. Constitutional: Denied any fatigue denied any fever. Cardio vascular: denied any chest pain, palpitations Gastrointestinal denied any nausea vomiting Pulmonary: Denied any shortness of breath cough Neurologic denied any new focal deficits All inpatient medications were reviewed and appropriate changes in these medications as dictated in the interval history and assessment and plan. Objective - Vital Signs Vital signs: Vital Signs Temp 98.5 F 05/06/19 07:00 Pulse 98 05/06/19 07:00 Resp 16 05/06/19 07:00 BP 185/92 05/06/19 07:00 Pulse Ox 93 L 05/06/19 07:00 Intake & Output 05/05/19 05/06/19 05/06/19 18:59 06:59 18:59 Intake Total 200 200 66.2 Output Total 500 Balance -300 200 66.2 Weight 58.967 kg Intake: Intake, IV Titration 200 66.2 Amount Ropivacaine 250 mg 66.2 Hydromorphone (Pf) 5 mg In Sodium Chloride 0.9% 200 ml @ Per Protocol EPIDURAL .Q0M PRN Rx#: [id number] Sodium Chloride 0.9% 1, 200 000 ml @ 100 mls/hr IV . Q10H GINA Rx#:[id number] Oral 200 Output: Urine 500 Other: Voiding Method Indwelling Catheter Indwelling Catheter Indwelling Catheter # Bowel Movements 2 - Exam PHYSICAL EXAMINATION: GENERAL: The patient is alert and oriented x3, not in any acute distress. Well developed, well nourished. HEENT: Pupils are round and equally reacting to light. EOMI. No scleral icterus. No conjunctival pallor. Normocephalic, atraumatic. No pharyngeal erythema. No thyromegaly. CARDIOVASCULAR: S1 and S2 present. No murmurs, rubs, or gallops. PULMONARY: Chest is clear to auscultation, no wheezing or crackles. ABDOMEN: Soft, minimal tenderness in the left lower quadrant, nondistended, normoactive bowel sounds. No palpable organomegaly. MUSCULOSKELETAL: No joint swelling or deformity. EXTREMITIES: No cyanosis, clubbing, or pedal edema. NEUROLOGICAL: Gross neurological examination did not reveal any focal deficits. SKIN: No rashes. - Labs CBC & Chem 7: 05/06/19 06:26 05/06/19 06:26 Labs: Abnormal Lab Results - Last 24 Hours (Table) 05/05/19 05/05/19 05/06/19 Range/Units 16:45 21:29 06:26 Neutrophils # 8.1 H (1.3-7.7) k/uL Lymphocytes # 0.9 L (1.0-4.8) k/uL Sodium (137-145) mmol/L Potassium (3.5-5.1) mmol/L Glucose (74-99) mg/dL POC Glucose (mg/dL) 126 H 125 H (75-99) mg/dL Total Protein (6.3-8.2) g/dL Albumin (3.5-5.0) g/dL 05/06/19 05/06/19 05/06/19 Range/Units 06:26 07:01 11:55 Neutrophils # (1.3-7.7) k/uL Lymphocytes # (1.0-4.8) k/uL Sodium 136 L (137-145) mmol/L Potassium 3.3 L (3.5-5.1) mmol/L Glucose 105 H (74-99) mg/dL POC Glucose (mg/dL) 112 H 130 H (75-99) mg/dL Total Protein 5.5 L (6.3-8.2) g/dL Albumin 3.3 L (3.5-5.0) g/dL Assessment and Plan Plan: -Accelerated Hypertension: Management as mentioned above -Diverticulitis:status post hemicolectomy with end-to-end anastomosis, still remains on metronidazole and Cefazolin, possibly of discharge tomorrow -Gastroesophageal reflux disease - hyperlipidemia: Continue with the statin -Depression continue with Loxitane
--- NOTE | 2019-05-06 14:19 | P.PN ---
Subjective Progress Note Date: 05/06/19 CHIEF COMPLAINT: Diverticulitis with large bowel obstruction HISTORY OF PRESENT ILLNESS: The patient is a 69-year-old female status post low anterior resection for diverticulitis and sigmoid stricture, 05/04/2019. She is POD 2. Nursing reports, "she is doing fantastic." She has urinated after canales removal. She is passing flatus and having bowel movements. "I have no pain!" She is tolerating liquids. ROS: No reports of nausea and vomiting. Had bowel movements. No fevers or chills. No new chest pain. No productive sputum PHYSICAL EXAM: VITAL SIGNS: Reviewed CONSTITUTIONAL: Well developed and in no acute distress. EYES: Conjuctivae without sclera icterus. Extraocular movements grossly intact. HEAD, EARS, NOSE, THROAT: Moist buccal mucosa. Head is atraumatic, normocephalic. Hears conversational speech. No nasal drainage. NECK: Supple. No thyroidomegaly. RESPIRATORY: Non-labored respirations and equal bilateral excursions. CARDIOVASCULAR: Palpable 2+ radial pulses. ABDOMEN: Incisions clean dry and intact. MUSCULOSKELETAL: No gross deformity of the lower extremities noted. No clubbing. No cyanosis. SKIN: Good skin turgor. Well perfused. NEUROLOGIC: Cranial nerves I through XII grossly intact. No focal or lateralizing signs. PSYCH: Appropriate affect. Alert and oriented to person, place and time. : Canales present and clear. CLINCAL LABS: White blood cell count over 13,000 now normal. ASSESSMENT: 1. Sigmoid diverticulitis with large bowel obstruction 2. S/p low anterior resection. PLAN: 1. Discharge home today pending blood pressure control with new medications placed per medicine 2. Liquid diet until follow up in 3 days in the office. 3. Tylenol and Motrin as needed for pain. Objective - Vital Signs Vital signs: Vital Signs Temp 98.5 F 05/06/19 07:00 Pulse 98 05/06/19 07:00 Resp 16 05/06/19 07:00 BP 185/92 05/06/19 07:00 Pulse Ox 93 L 05/06/19 07:00 Intake & Output 05/05/19 05/06/19 05/06/19 18:59 06:59 18:59 Intake Total 200 200 66.2 Output Total 500 Balance -300 200 66.2 Weight 58.967 kg Intake: Intake, IV Titration 200 66.2 Amount Ropivacaine 250 mg 66.2 Hydromorphone (Pf) 5 mg In Sodium Chloride 0.9% 200 ml @ Per Protocol EPIDURAL .Q0M PRN Rx#: [id number] Sodium Chloride 0.9% 1, 200 000 ml @ 100 mls/hr IV . Q10H GINA Rx#:[id number] Oral 200 Output: Urine 500 Other: Voiding Method Indwelling Catheter Indwelling Catheter Indwelling Catheter # Bowel Movements 2 - Labs CBC & Chem 7: 05/06/19 06:26 05/06/19 06:26 Labs: Abnormal Lab Results - Last 24 Hours (Table) 05/05/19 05/05/19 05/06/19 Range/Units 16:45 21:29 06:26 Neutrophils # 8.1 H (1.3-7.7) k/uL Lymphocytes # 0.9 L (1.0-4.8) k/uL Sodium (137-145) mmol/L Potassium (3.5-5.1) mmol/L Glucose (74-99) mg/dL POC Glucose (mg/dL) 126 H 125 H (75-99) mg/dL Total Protein (6.3-8.2) g/dL Albumin (3.5-5.0) g/dL 05/06/19 05/06/19 05/06/19 Range/Units 06:26 07:01 11:55 Neutrophils # (1.3-7.7) k/uL Lymphocytes # (1.0-4.8) k/uL Sodium 136 L (137-145) mmol/L Potassium 3.3 L (3.5-5.1) mmol/L Glucose 105 H (74-99) mg/dL POC Glucose (mg/dL) 112 H 130 H (75-99) mg/dL Total Protein 5.5 L (6.3-8.2) g/dL Albumin 3.3 L (3.5-5.0) g/dL Assessment and Plan (1) Sigmoid volvulus Current Visit: Yes Status: Acute Code(s): K56.2 - VOLVULUS SNOMED Code(s): 759704364 (2) Intractable nausea and vomiting Current Visit: Yes Status: Acute Code(s): R11.2 - NAUSEA WITH VOMITING, UNSPECIFIED SNOMED Code(s): 091216011 (3) Celiac disease Current Visit: Yes Status: Acute Code(s): K90.0 - CELIAC DISEASE SNOMED Code(s): 281491191 (4) Diabetes type 2, controlled Current Visit: Yes Status: Acute Code(s): E11.9 - TYPE 2 DIABETES MELLITUS WITHOUT COMPLICATIONS SNOMED Code(s): 66979883 (5) Hyperlipidemia Current Visit: Yes Status: Acute Code(s): E78.5 - HYPERLIPIDEMIA, UNSPECIFIED SNOMED Code(s): 01262048 (6) Depressive disorder Current Visit: Yes Status: Acute Code(s): F32.9 - MAJOR DEPRESSIVE DISORDER, SINGLE EPISODE, UNSPECIFIED SNOMED Code(s): 09679271 (7) Hypertensive heart disease Current Visit: Yes Status: Acute Code(s): I11.9 - HYPERTENSIVE HEART DISEASE WITHOUT HEART FAILURE SNOMED Code(s): 02035121 (8) Diverticulitis of sigmoid colon Current Visit: Yes Status: Acute Code(s): K57.32 - DVTRCLI OF LG INT W/O PERFORATION OR ABSCESS W/O BLEEDING SNOMED Code(s): 570100808 (9) Large bowel obstruction Current Visit: Yes Status: Acute Code(s): K56.609 - UNSP INTESTNL OBST, UNSP TO PARTIAL VERSUS COMPLETE OBST SNOMED Code(s): 771252480 (10) Stricture of sigmoid colon Current Visit: Yes Status: Acute Code(s): K56.699 - OTHER INTESTNL OBST UNSP TO PARTIAL VERSUS COMPLETE OBST SNOMED Code(s): 4546675 (11) S/P colectomy Current Visit: Yes Status: Acute Code(s): Z90.49 - ACQUIRED ABSENCE OF OTHER SPECIFIED PARTS OF DIGESTIVE TRACT SNOMED Code(s): 078501314
[2019-05-06 14:30] VITALS: BP 168/82; PULSE 88; RESP 15; TEMP 98.3
[2019-05-06] MEDS ORDERED: CARVEDILOL 6.25 MG TAB PO SCH (17:30)
[2019-05-07] MEDS ORDERED: LISINOPRIL 20 MG TAB PO SCH (09:00)
--- NOTE | 2019-05-09 11:53 | P.DS ---
Providers Date of admission: 05/04/19 06:24 Expected date of discharge: 05/06/19 Attending physician: Silvana Ugarte Primary care physician: Eder Morton - Discharge Diagnosis(es) (1) Sigmoid volvulus Status: Acute (2) Intractable nausea and vomiting Status: Acute (3) Celiac disease Status: Acute (4) Diabetes type 2, controlled Status: Acute (5) Hyperlipidemia Status: Acute (6) Depressive disorder Status: Acute (7) Hypertensive heart disease Status: Acute (8) Diverticulitis of sigmoid colon Status: Acute (9) Large bowel obstruction Status: Acute (10) Stricture of sigmoid colon Status: Acute (11) S/P colectomy Status: Acute Hospital Course: POSTOPERATIVE DIAGNOSES: 1. Large bowel obstruction due to sigmoid stricture from diverticulitis 2. Hypertensive heart disease 3. Diabetes type 2, controlled 4. Celiac disease 5. Depressive disorder 6. Gastroesophageal reflux disease 7. Hyperlipidemia 8. Gout 9. Peritoneal adhesions greater omentum to abdominal wall midabdomen CIURSE: The patient is a 69-year-old female who presented with complicated diverticulitis including sigmoid stricture. She was admitted for abdominal pain including nausea and vomiting. She underwent a robotic sigmoid colectomy low anterior section. Immediately within 12-24 hours she was passing flatus and had bowel movements. Pain was well-controlled. Medicine team was consulted for management of her hypertension. Prior to discharge, she was tolerating diet. Blood pressure has been controlled. She was passing flatus and having bowel movements. Follow-up in the office in 3-5 days was reviewed. Procedures: OPERATION: 1. Robotic-assisted daVinci Xi laparoscopic extensive lysis of adhesions over 2 hours 2. Robotic-assisted daVinci Xi laparoscopic low anterior resection 3. Intraoperative sigmoidoscopy Patient Condition at Discharge: Good Plan - Discharge Summary Discharge Rx Participant: No New Discharge Prescriptions: New Carvedilol [Coreg] 6.25 mg PO BID-W/MEALS #30 tab Lisinopril [Zestril] 40 mg PO DAILY #30 tab Ibuprofen [Motrin] 600 mg PO Q8HR PRN #30 tab PRN Reason: Pain Continue Rosuvastatin [Crestor] 20 mg PO HS Enalapril [Vasotec] 20 mg PO BID DULoxetine HCL [Cymbalta] 60 mg PO HS Discontinued Ubidecarenone [Co Q-10] 100 mg PO DAILY Cholecalciferol (Vitamin D3) [Vitamin D3] 2,000 unit PO DAILY Calcium & Vitamin D 1 tab PO DAILY Vitamin B Complex 1 cap PO DAILY Discharge Medication List Enalapril [Vasotec] 20 mg PO BID 04/06/18 [History] Rosuvastatin [Crestor] 20 mg PO HS 04/06/18 [History] DULoxetine HCL [Cymbalta] 60 mg PO HS 03/08/19 [History] Carvedilol [Coreg] 6.25 mg PO BID-W/MEALS #30 tab 05/06/19 [Rx] Ibuprofen [Motrin] 600 mg PO Q8HR PRN #30 tab 05/06/19 [Rx] Lisinopril [Zestril] 40 mg PO DAILY #30 tab 05/06/19 [Rx] Follow up Appointment(s)/Referral(s): Eder Morton MD [Primary Care Provider] - 1-2 days Silvana Ugarte MD [STAFF PHYSICIAN] - 05/08/19 Patient Instructions/Handouts: Laparoscopic Bowel Resection (DC), Colectomy Diet (DC) Activity/Diet/Wound Care/Special Instructions: May shower. No bath tub soaks. High protein diet shakes. No lifting over 4 pounds for 4 weeks until June 04. Discharge Disposition: HOME SELF-CARE
== END 2019-05-06 14:57 | disposition home or self-care (01) | DRG 331 ==
LOC: EC 17:30 → 4SSUR 18:13 → OBSVTOIN 05-04 06:24
PROVIDERS: ADMIT Surgery Plastic and Reconstructive Surgery; ATTEND Surgery Plastic and Reconstructive Surgery
PROC: 0DNU4ZZ Release Omentum, Percutaneous Endoscopic Approach (ICD-10-PCS; principal; 2019-05-04 12:20)
PROC: 0DTNFZZ Resection of Sigmoid Colon, Via Natural or Artificial Opening With Percutaneous Endoscopic Assistance (ICD-10-PCS; principal; 2019-05-04 12:20)
PROC: 0DJD8ZZ Inspection of Lower Intestinal Tract, Via Natural or Artificial Opening Endoscopic (ICD-10-PCS; principal; 2019-05-04 12:20)
DX: K56.2 Volvulus (principal); K56.50 Intestinal adhesions [bands], unspecified as to partial versus complete obstruction; K57.30 Diverticulosis of large intestine without perforation or abscess without bleeding; E11.9 Type 2 diabetes mellitus without complications; E78.5 Hyperlipidemia, unspecified; E86.0 Dehydration; F32.9 Major depressive disorder, single episode, unspecified; F41.9 Anxiety disorder, unspecified; G89.29 Other chronic pain; I11.9 Hypertensive heart disease without heart failure; K21.9 Gastro-esophageal reflux disease without esophagitis; K90.0 Celiac disease; M10.9 Gout, unspecified; Z82.49 Family history of ischemic heart disease and other diseases of the circulatory system; Z83.3 Family history of diabetes mellitus; Z87.891 Personal history of nicotine dependence; Z90.710 Acquired absence of both cervix and uterus; Z79.899 Other long term (current) drug therapy; Z91.018 Allergy to other foods
CPT/HCPCS: 36415; 80048; 80053; 85025; 85610; 86850; 86900; 86901; 88307; 99284

== ENCOUNTER → 2020-02-27 | Outpatient (CLI) | payer MEDICARE, OTHER ==
--- NOTE | 2020-02-28 11:34 | MM ---
Reason for exam: screening (asymptomatic). Last mammogram was performed 1 year and 4 months ago. History: Patient is postmenopausal. Benign US biopsy breast VAD RT of the right breast, August 01, 2015. Physical Findings: A clinical breast exam by your physician is recommended on an annual basis and results should be correlated with mammographic findings. MG 3D Screening Mammo W/Cad Bilateral CC and MLO view(s) were taken. Prior study comparison: October 16, 2018, bilateral MG 3d screening mammo w/cad. September 05, 2017, bilateral MG screening mammo w CAD. The breast tissue is heterogeneously dense. This may lower the sensitivity of mammography. Previous mammotome biopsy in the right breast. There is chronic nodularity bilaterally. Benign oil cysts and vascular calcifications. No significant changes when compared with prior studies. ASSESSMENT: Benign, BI-RAD 2 RECOMMENDATION: Routine screening mammogram of both breasts in 1 year.
== END | disposition home or self-care (01) ==
LOC: RADMAMWWP 13:04
PROVIDERS: ATTEND Family Medicine
DX: Z12.31 Encounter for screening mammogram for malignant neoplasm of breast (principal)
CPT/HCPCS: 77063; 77067

== ENCOUNTER → 2020-07-25 | Outpatient (CLI) | payer MEDICARE, OTHER ==
--- NOTE | 2020-07-25 22:19 | ECHOS ---
STRESS ECHOCARDIOGRAM LUMASON: @@ Vial INDICATIONS: Shortness of breath/chest pain. MEDICATIONS: Enalapril, Crestor, aspirin, HCTZ. BASELINE HEART RATE: 75 beats per minute BASELINE BLOOD PRESSURE: 134/63 MAXIMUM HEART RATE: 147 beats per minute MAXIMUM BLOOD PRESSURE: 170/106 85% MPHR: 129 100% MPHR: 152 METS: 7.1 MAXIMUM STAGE REACHED: 2 TOTAL EXERCISE TIME: 5 minutes 15 seconds CLINICAL INFORMATION: Baseline EKG revealed normal sinus rhythm without significant ST-T changes. There was some low voltage noted. The patient walked on standard [place]am protocol for 5 minutes 15 seconds, developed fatigue and shortness of breath. Resting heart rate was 75 beats per minute. Peak heart rate was 147 beats per minute, well above 85% of predicted maximal. Resting blood pressure was 134/63 and peak blood pressure was 170/106. EKG at rest revealed some inferolateral ST-segment abnormality. At peak exercise, there was upsloping nonspecific ST-segment prominence without anginal symptoms. There was no evidence of any significant ectopy. By EKG criteria, this is considered as an equivocal stress test with upsloping nonspecific ST-segment changes, not clearly suggestive of ischemia, and there were no anginal symptoms and there was no arrhythmia. Baseline echo images revealed normal wall motion and wall thickening of all segments. At peak exercise there was good augmentation of left ventricular wall motion and wall thickening of all segments, suggesting that there is no evidence of stress-induced ischemia on this study. FINAL IMPRESSION: 1. Fair exercise capacity with technically equivocal stress test without clear-cut evidence of ischemia. No anginal symptoms were reported. Upsloping nonspecific ST- segment changes were noted. 2. Normal stress echocardiogram without evidence of ischemia. MMODL / IJN: [id number] /
== END | disposition home or self-care (01) ==
LOC: RADNMMAIN 09:12
PROVIDERS: ATTEND Family Medicine
DX: R94.31 Abnormal electrocardiogram [ECG] [EKG] (principal)
CPT/HCPCS: 93351

== ENCOUNTER → 2021-05-21 | Outpatient (CLI) | payer MEDICARE, OTHER ==
--- NOTE | 2021-05-21 15:18 | XR ---
Lumbosacral spine HISTORY: M54.41 M25.559 5 views of the lumbosacral spine Correlation to prior exam dated 06/28/2018 Multilevel spondylosis is present. Lumbar vertebral bodies show preserved height, alignment, bone min eralization is reduced. There is no evident spondylolysis. Loss of disc height is present at L3-4, L2 -3. Sclerosis is present in the posterior elements of the lower lumbar spine. Apical scarring calcifi cation present in the aortoiliac distribution. Stopped changes are noted in the pelvis. IMPRESSION: Degenerative disc disease and facet arthropathy, osteopenia and postop changes.
--- NOTE | 2021-05-21 15:31 | XR ---
EXAMINATION TYPE: XR Hip Bilateral and AP pelvis DATE OF EXAM: 05/21/2021 COMPARISON: NONE HISTORY: M54.41 M25.906 TECHNIQUE: A single AP view of the pelvis is obtained. Two views of the bilateral hips are obtained. FINDINGS: There is no acute fracture/dislocation evident in the pelvis. The hip and sacroiliac join ts appear symmetric and unremarkable. The overlying soft tissue appears unremarkable. There are vasc ular calcifications noted incidentally. Postop change noted in the pelvis. Bone mineralization is red uced. Two views of bilateral hip show no acute fracture or dislocation. No focal lytic or sclerotic lesion seen in the proximal bilateral femurs. The overlying soft tissue is unremarkable. IMPRESSION: There is no acute fracture or dislocation in the pelvis or bilateral hips.
== END | disposition home or self-care (01) ==
LOC: RADXRMAIN 13:48
PROVIDERS: ATTEND Family Medicine
DX: M51.37 Other intervertebral disc degeneration, lumbosacral region (principal); M47.897 Other spondylosis, lumbosacral region; M85.88 Other specified disorders of bone density and structure, other site; M25.559 Pain in unspecified hip
CPT/HCPCS: 72110; 73521

== ENCOUNTER 2021-05-27 06:53 | Day surgery (SDC) | payer MEDICARE, OTHER ==
[2021-05-21 16:15] VITALS: BMI 24.5
[~2021-05-27 06:53] MED LIST changes: +LIDOCAINE 1% (10MG/ML) FOR IV START INTRADERMA PRN; -LIDOCAINE 1% 20 ML VIAL (10MG/ML) FOR IV START INTRADERMA PRN; -LIDOCAINE 1% INJ 10MG/ML (20 ML MDV) ONE; -PROPOFOL 10 MG/ML 20 ML VIAL IV ONE
[2021-05-27 07:15] VITALS: TEMP 98.5
[2021-05-27 07:20] LABS: Glucose,Whole Blood 127 mg/dL (75-99)
[2021-05-27] MEDS ORDERED: LIDOCAINE 1% INJ 10MG/ML (20 ML MDV) ONE (07:41)
[2021-05-27] MEDS ORDERED: PROPOFOL 10 MG/ML 20 ML VIAL IV ONE (07:41)
[2021-05-27] MEDS ORDERED: fentaNYL (PF) 50 MCG/ML 2 ML AMP ONE (07:41)
--- NOTE | 2021-05-27 07:41 | P.GSHP ---
History of Present Illness H&P Date: 05/27/21 CHIEF COMPLAINT: Colon screen HISTORY OF PRESENT ILLNESS: The patient is a 71-year-old female who presents for colon screen. Lower endoscopy was offered for further evaluation and management. PAST MEDICAL HISTORY: Please see list. PAST SURGICAL HISTORY: Please see list. MEDICATIONS: Please see list. ALLERGIES: Please see list. SOCIAL HISTORY: No illicit drug use FAMILY HISTORY: No reports of Crohn disease or ulcerative colitis. REVIEW OF ORGAN SYSTEMS: CONSTITUTIONAL: No reports of fevers or chills. PHYSICAL EXAM: VITAL SIGNS: Stable GENERAL: Well-developed pleasant in no acute distress. HEENT: No scleral icterus. Extraocular movements grossly intact. Moist buccal mucosa. NECK: Supple without lymphadenopathy. CHEST: Unlabored respirations. Equal bilateral excursions. CARDIOVASCULAR: Regular rate and rhythm. Distal 2+ pulses. ABDOMEN: Soft, nontender, nondistended. MUSCULOSKELETAL: No clubbing, cyanosis, or edema. ASSESSMENT: 1. Colon screen. PLAN: 1. Recommend proceeding with a lower endoscopy Past Medical History Past Medical History: Diabetes Mellitus, GERD/Reflux, Hyperlipidemia, Hypertension Additional Past Medical History / Comment(s): celiac disease, gout, diverticulitis, diet control diabetic, History of Any Multi-Drug Resistant Organisms: None Reported Past Surgical History: Appendectomy, Cholecystectomy, Ear Surgery, Hysterectomy, Tubal Ligation Additional Past Surgical History / Comment(s): rt ear surgery graft, bowel surgery. Past Anesthesia/Blood Transfusion Reactions: No Reported Reaction Additional Past Anesthesia/Blood Transfusion Reaction / Comment(s): "i go under deeper" Smoking Status: Former smoker - Past Family History Father Family Medical History: Cancer Additional Family Medical History / Comment(s): neck and thoart cancer Mother Family Medical History: Congestive Heart Failure (CHF), Coronary Artery Disease (CAD), Diabetes Mellitus, Hyperlipidemia Medications and Allergies Home Medications Medication Instructions Recorded Confirmed Type Enalapril [Vasotec] 20 mg PO BID 04/06/18 05/27/21 History Rosuvastatin [Crestor] 20 mg PO HS 04/06/18 05/27/21 History Aspirin 81 mg PO DAILY 05/21/21 05/27/21 History Calcium Carbonate [Calcium] 600 mg PO DAILY 05/21/21 05/27/21 History Hydrochlorothiazide 12.5 mg PO DAILY 05/21/21 05/27/21 History [hydroCHLOROthiazide] Multivitamins, Thera [Multivitamin 1 tab PO DAILY 05/21/21 05/27/21 History (formulary)] Ubidecarenone [Co Q-10] 100 mg PO DAILY 05/21/21 05/27/21 History methylPREDNISolone [Medrol Dose 4 mg PO DIRECTED 05/21/21 05/27/21 History Pack] Allergies Allergy/AdvReac Type Severity Reaction Status Date / Time gluten Allergy GI ISSUES Verified 05/21/21 16:00 R/T CELIAC milk Allergy Nausea & Verified 05/21/21 16:00 Vomiting & Diarrhea Surgical - Exam Vital Signs Temp Pulse Resp BP Pulse Ox 98.5 F 87 16 168/79 97 05/27/21 07:10 05/27/21 07:10 05/27/21 07:10 05/27/21 07:10 05/27/21 07:10 Results - Labs Abnormal Lab Results - Last 24 Hours (Table) 05/27/21 Range/Units 07:19 POC Glucose (mg/dL) 127 H (75-99) mg/dL
--- NOTE | 2021-05-27 08:13 | P.PCN ---
Date of Procedure: 05/27/21 Description of Procedure: PREOPERATIVE DIAGNOSIS: Personal history of colon polyps Colonoscopy screening POSTOPERATIVE DIAGNOSIS: Cecal adenoma, 4 cm Severe sigmoid diverticulosis Pandiverticulosis OPERATION: Colonoscopy to the ileocecal valve and appendiceal orifice, cecum Colonoscopy with hot snare polypectomy Colonoscopy with injection of Hawa ink, 4 mm cecum SURGEON: Silvana Ugarte MD. ANESTHESIA: MAC. INDICATIONS: The patient is an 71-year-old female who presents personal history of colon polyps. Last colonoscopy 5 years. Benefits and risks were described and informed consent was obtained. DESCRIPTION OF PROCEDURE: The patient had undergone Sutab prep. The patient had been brought into the operating room and laid in the left lateral decubitus position. After adequate intravenous sedation, the rectum was examined with 2% lidocaine jelly. External hemorrhoids were encountered. The rectal tone was within normal limits. No lesions were palpated in the rectal vault. An Olympus colonoscope was advanced until the cecum, ileocecal valve and appendiceal orifice were clearly viewed. The prep was good. Sigmoid diverticulosis was encountered. Colonic polyps were found and removed with partial resection along the cecum for a over 4 cm adenoma. No evidence of focal colitis was found. Retroflexion of the scope demonstrated grade 3 internal hemorrhoids without active bleeding or inflammation. The colon was desufflated. The patient had tolerated the procedure well. Withdrawal time was over 6 minutes. FINDINGS: Aronchick preparation quality scale 2 (1-5) Internal hemorrhoids, grade 3 External hemorrhoids, grade 3 No arteriovenous malformations. Sigmoid diverticulosis, severe Pandiverticulosis Removal of 2 polyps: - Snare polypectomy at ileocecal valve, 5 mm tubulovillous adenoma polyp. - Snare polypectomy at cecum, 40 mm (4-cm) tubulovillous adenoma with partial r esection after multiple passes Injection of Hawa ink 4 mLat base of partially resected tumor, cecum No focal colitis. RECOMMENDATIONS: 1. Recommend surgical resection due to large 4 cm partially resected mass Plan - Discharge Summary Discharge Rx Participant: Yes New Discharge Prescriptions: Continue Rosuvastatin [Crestor] 20 mg PO HS Enalapril [Vasotec] 20 mg PO BID Aspirin 81 mg PO DAILY Ubidecarenone [Co Q-10] 100 mg PO DAILY Hydrochlorothiazide [hydroCHLOROthiazide] 12.5 mg PO DAILY Calcium Carbonate [Calcium] 600 mg PO DAILY methylPREDNISolone [Medrol Dose Pack] 4 mg PO DIRECTED Multivitamins, Thera [Multivitamin (formulary)] 1 tab PO DAILY Discharge Medication List Enalapril [Vasotec] 20 mg PO BID 04/06/18 [History] Rosuvastatin [Crestor] 20 mg PO HS 04/06/18 [History] Aspirin 81 mg PO DAILY 05/21/21 [History] Calcium Carbonate [Calcium] 600 mg PO DAILY 05/21/21 [History] Hydrochlorothiazide [hydroCHLOROthiazide] 12.5 mg PO DAILY 05/21/21 [History] Multivitamins, Thera [Multivitamin (formulary)] 1 tab PO DAILY 05/21/21 [History] Ubidecarenone [Co Q-10] 100 mg PO DAILY 05/21/21 [History] methylPREDNISolone [Medrol Dose Pack] 4 mg PO DIRECTED 05/21/21 [History] Follow up Appointment(s)/Referral(s): Silvana Ugarte MD [STAFF PHYSICIAN] - 06/02/21 Patient Instructions/Handouts: Colorectal Polyps (GEN), Colonoscopy (DC), Diverticulosis Diet (GEN), Diverticulosis (DC) Activity/Diet/Wound Care/Special Instructions: Follow-up in my office advised. Repeat colonoscopy in one year, 2021 Discharge Disposition: HOME SELF-CARE
[2021-05-27] MEDS ORDERED: hydrALAZINE HCL 20 MG/ML 1 ML VIAL IVP ONE (09:06)
[2021-05-27] MEDS ORDERED: hydrALAZINE HCL 20 MG/ML 1 ML VIAL ONE (09:07)
[2021-05-27 09:37] VITALS: BP 174/73; PULSE 71; RESP 14
== END 2021-05-27 09:50 | disposition home or self-care (01) ==
LOC: ORWHC2ENDO 06:53
PROVIDERS: ATTEND Surgery Plastic and Reconstructive Surgery
DX: Z12.11 Encounter for screening for malignant neoplasm of colon (principal); D12.0 Benign neoplasm of cecum; Z86.010 Personal history of colon polyps; E11.9 Type 2 diabetes mellitus without complications; E78.5 Hyperlipidemia, unspecified; I10 Essential (primary) hypertension; K21.9 Gastro-esophageal reflux disease without esophagitis; K57.30 Diverticulosis of large intestine without perforation or abscess without bleeding; K90.0 Celiac disease; Z79.52 Long term (current) use of systemic steroids; Z79.82 Long term (current) use of aspirin; Z79.899 Other long term (current) drug therapy; Z82.49 Family history of ischemic heart disease and other diseases of the circulatory system; Z83.3 Family history of diabetes mellitus; Z87.891 Personal history of nicotine dependence; Z90.49 Acquired absence of other specified parts of digestive tract; K64.4 Residual hemorrhoidal skin tags; K64.8 Other hemorrhoids
CPT/HCPCS: 45385; 88305; J0360; J2001; J3010; J2704; 44404

== ENCOUNTER → 2021-06-14 | Outpatient (CLI) | payer MEDICARE, OTHER ==
--- NOTE | 2021-06-14 08:45 | MR ---
EXAMINATION TYPE: MR lumbar spine wo con DATE OF EXAM: 06/14/2021 COMPARISON: None HISTORY: LBP, radiating down right leg x 1 year. No hx of trauma/surgery. TECHNIQUE: Multiplanar, multisequence images of the lumbar spine were acquired without IV contrast. Findings: The lumbar vertebral segments are normal in both height and alignment and there is no fracture or sub luxation The disc spaces are well-maintained in height but there is mild loss of signal intensity indicating d isc desiccation and mild degenerative disc disease. There are no lumbar disc herniations. Secondary to circumvented disc bulge, moderate hypertrophy of the facet joints and thickening of liga mentum flavum, there is a mild to moderate spinal stenosis at the L4-5 level. There is marked facet degeneration at both the L4-5 and L5-S1 levels. There is mild neural foraminal stenosis at the L4-5 and L5-S1 levels on the right. Conus medullaris and cauda equina appear normal. The paraspinal soft tissues are unremarkable. IMPRESSION: 1. No lumbar spine fracture or malalignment. 2. Mild degenerative disc disease throughout the lumbar spine. 3. No lumbar disc herniation. 4. Mild to moderate spinal stenosis at the L4-5 level. 5. Marked facet arthropathy at the L4-5 and L5-S1 levels. 6. Mild neural foraminal stenosis at the L4-5 and L5-S1 levels on the right.
== END | disposition home or self-care (01) ==
LOC: RADMRIMAIN 07:40
PROVIDERS: ATTEND Family Medicine
DX: M51.36 Other intervertebral disc degeneration, lumbar region (principal); M48.061 Spinal stenosis, lumbar region without neurogenic claudication; M47.896 Other spondylosis, lumbar region
CPT/HCPCS: 72148

== ENCOUNTER → 2021-06-19 | Outpatient (CLI) | payer MEDICARE, OTHER ==
[2021-06-19 11:08] LABS: HCT 40.8 % (34.0-46.0); HGB 13.3 gm/dL (11.4-16.0); MCH 29.5 pg (25.0-35.0); MCHC 32.5 g/dL (31.0-37.0); MCV 90.7 fL (80.0-100.0); Mean Platelet Volume 7.1; Platelet Count 270 k/uL (150-450); RDW 13.5 % (11.5-15.5); WBC 6.4 k/uL (3.8-10.6)
[2021-06-19 11:25] LABS: Albumin 4.4 g/dL (3.5-5.0); Calcium 10.2 mg/dL (8.4-10.2); Potassium 4.5 mmol/L (3.5-5.1); Total Bilirubin 0.5 mg/dL (0.2-1.3); Total Protein 7.2 g/dL (6.3-8.2)
== END | disposition home or self-care (01) ==
LOC: LABPAT 10:31
PROVIDERS: ATTEND Surgery Plastic and Reconstructive Surgery
DX: Z01.810 Encounter for preprocedural cardiovascular examination (principal)
CPT/HCPCS: 36415; 80053; 85027

== ENCOUNTER → 2021-06-23 | Outpatient (CLI) | payer MEDICARE, OTHER ==
--- NOTE | 2021-06-24 14:04 | MM ---
Reason for exam: screening (asymptomatic). Last mammogram was performed 1 year and 4 months ago. History: Patient is postmenopausal. Benign US biopsy breast VAD RT of the right breast, August 01, 2015. Physical Findings: A clinical breast exam by your physician is recommended on an annual basis and results should be correlated with mammographic findings. MG 3D Screening Mammo W/Cad Bilateral CC and MLO view(s) were taken. Prior study comparison: February 27, 2020, bilateral MG 3d screening mammo w/cad. October 16, 2018, bilateral MG 3d screening mammo w/cad. The breast tissue is heterogeneously dense. This may lower the sensitivity of mammography. Finding: There are typically benign vascular calcifications in both breasts. There is a chronic nodularity bilaterally. No significant changes in finding since February 27, 2020 and October 16, 2018. ASSESSMENT: Benign, BI-RAD 2 RECOMMENDATION: Routine screening mammogram of both breasts in 1 year.
--- NOTE | 2021-06-25 15:18 | BD ---
EXAMINATION TYPE: Axial Bone Density DATE OF EXAM: 06/23/2021 COMPARISON: 04/07/2016 CLINICAL HISTORY: Postmenopausal screening Height: 61.5 IN Weight: 134 LBS FRAX RISK QUESTIONS: Family History (Parent hip fracture): YES MOTHER History of Fracture in Adulthood: RT FOOT AGE 66 RISK FACTORS HISTORY OF: Family History of Osteoporosis: YES MOTHER Active: YES Diet low in dairy products/other sources of calcium: YES Postmenopausal woman: AGE 55 MEDICATIONS: Osteoporosis Medications: NOT NOW Which medication: Prolia How Lon ROUND Additional Medications: CALCIUM, VIT D, BLOOD PRESSURE, WATER PILL, CHOLESTEROL MEDS, ARTHRITIS, COQ1 0, ASPIRIN, B COMPLEX EXAM MEASUREMENTS: Bone mineral densitometry was performed using the TwtBks System. Bone mineral density as measured about the Lumbar spine is: ----- L1-L4(G/cm2): 1.057 T Score Values are as follows: ----- L2: -1.8 ----- L3: -0.2 ----- L4: -0.8 ----- L1-L4: -1.0 Bone mineral density has: Increased 0.1% since study of: 04/07/2016 Bone mineral density about the R hip (g/cm2): 0.781 Bone mineral density about the L hip (g/cm2): 0.745 T Score values are as follows: -----R Neck: -1.8 -----L Neck: -2.1 -----R Total: -1.3 -----L Total: -1.4 Bone mineral density has: Decreased -4.7% since study of: 04/07/2016 IMPRESSION: Osteopenia (T Score between -2.5 and -1). There is slightly increased risk of fracture and the patient may be considered for treatment. Re-Screen 2-5 years. NOTE: T-SCORE=SD OF THE YOUNG ADULT MEAN.
== END | disposition home or self-care (01) ==
LOC: RADMAMWWP 15:54
PROVIDERS: ATTEND Family Medicine
DX: Z12.31 Encounter for screening mammogram for malignant neoplasm of breast (principal); Z78.0 Asymptomatic menopausal state; M85.80 Other specified disorders of bone density and structure, unspecified site
CPT/HCPCS: 77063; 77067; 77080

== ENCOUNTER → 2021-10-19 | Outpatient (CLI) | payer MEDICARE, OTHER | END | disposition home or self-care (01) | LOC: LABPAT 09:44 | PROVIDERS: ATTEND Surgery Plastic and Reconstructive Surgery | DX: Z03.818 Encounter for observation for suspected exposure to other biological agents ruled out (principal); Z20.822 Contact with and (suspected) exposure to COVID-19 | CPT/HCPCS: U0003; C9803 ==

== ENCOUNTER 2021-10-22 07:14 | Day surgery (SDC) | payer MEDICARE, OTHER ==
[2021-10-19 12:08] VITALS: BMI 24.3
--- NOTE | 2021-10-22 06:17 | P.GSHP ---
History of Present Illness H&P Date: 10/22/21 CHIEF COMPLAINT: Unresectable colon adenoma HISTORY OF PRESENT ILLNESS: The patient is an 71 year-old female with unresectable colon adenoma. She presents for colonoscopy for tattooing followed by colon resection. PAST MEDICAL HISTORY: Please see list. PAST SURGICAL HISTORY: Please see list. MEDICATIONS: Please see list. ALLERGIES: Please see list. SOCIAL HISTORY: No illicit drug use FAMILY HISTORY: No reports of Crohn disease or ulcerative colitis. REVIEW OF ORGAN SYSTEMS: Cardiovascular: No rrecent chest pain or heart attacks. CONSTITUTIONAL: No fevers or chills. HEENT: Denies any trouble with vision, hearing or nosebleeds. No difficulty swallowing. LYMPHATIC: The patient denies any lumps and bumps around the neck. ENDOCRINE: Denies any thyroid disorders. Denies any blood sugar glucose intolerance. RESPIRATORY: Denies pneumonia. Denies any troubles with breathing or dyspnea on exertion. GASTROINTESTINAL: Denies fatty food intolerance. Prior colon resection. GENITOURINARY: Denies any blood in urine or increased urinary frequency. MUSCULOSKELETAL: Has back pain, stiffness or joint arthritis. NEUROLOGIC: Denies any numbness or tingling along the distal extremities. No seizure disorders or headaches. PSYCHIATRIC: Denies any depression or suicidal ideation. HEMATOLOGIC: Denies DVT. BREASTS: Denies any breast lumps, pain or nipple discharge. PHYSICAL EXAM: VITAL SIGNS: Stable Patient is a 71-year-old female. Abdomen: Soft and protuberant. GENERAL: Well developed and in no acute distress. Pleasant. HEENT: No sclera icterus. Extraocular movements grossly intact. Moist buccal mucosa. Head is atraumatic, normocephalic. Hears conversational speech. No nasal drainage. NECK: Supple without lymphadenopathy. No JV distention. CHEST: Non-labored respirations and equal bilateral excursions. CARDIOVASCULAR: Irregular rate and rhythm. Palpable 2+ radial pulses. MUSCULOSKELETAL: No clubbing, cyanosis or edema. NEUROLOGIC: No focal or lateralizing signs. PSYCH: Appropriate affect. Alert and oriented to person, place and time. SKIN: Well perfused. Good skin turgor. ASSESSMENT: 1. Colon adenoma PLAN: 1. Colonoscopy for tattooing advised. 2. Also recommend robotic assisted approach was described for colon resection 3. Enhanced colon protocol. 4. Inpatient hospitalization for 2 nights and more 5. DVT prophylaxis. 6. Antibiotic prophylaxis. Past Medical History Past Medical History: Diabetes Mellitus, Hearing Disorder / Deafness, Hyperlipidemia, Hypertension, Osteoarthritis (OA) Additional Past Medical History / Comment(s): Celiac disease, gout, diverticulitis, diet control diabetes, hard of hearing in right ear. History of Any Multi-Drug Resistant Organisms: None Reported Past Surgical History: Appendectomy, Bowel Resection, Cholecystectomy, Ear Surgery, Hysterectomy, Tubal Ligation Additional Past Surgical History / Comment(s): Right ear surgery - graft, colonoscopy. Past Anesthesia/Blood Transfusion Reactions: Previous Problems w/ Anesthesia, Motion Sickness Additional Past Anesthesia/Blood Transfusion Reaction / Comment(s): "I go under deeper, was in hospital for 3 days after my tubal ligation." Past Psychological History: Anxiety Smoking Status: Former smoker Past Alcohol Use History: None Reported Additional Past Alcohol Use History / Comment(s): Quit smoking 25 yrs ago, smoked from age 19, 1 PPD. Past Drug Use History: Marijuana Additional Drug Use History / Comment(s): Occasional Marijuana use, aware no use 24 hrs prior to procedure. - Past Family History Father Family Medical History: Cancer Additional Family Medical History / Comment(s): Neck and throat cancer. Mother Family Medical History: Congestive Heart Failure (CHF), Coronary Artery Disease (CAD), Diabetes Mellitus, Hyperlipidemia Sister(s) Family Medical History: CVA/TIA, Vascular Disorder Brother(s) Family Medical History: Cancer Additional Family Medical History / Comment(s): Leukemia. Medications and Allergies Home Medications Medication Instructions Recorded Confirmed Type Enalapril [Vasotec] 20 mg PO BID 04/06/18 10/19/21 History Rosuvastatin [Crestor] 20 mg PO HS 04/06/18 10/19/21 History Calcium Carbonate [Calcium] 600 mg PO DAILY 05/21/21 10/19/21 History Hydrochlorothiazide 12.5 mg PO DAILY 05/21/21 10/19/21 History [hydroCHLOROthiazide] Multivitamins, Thera [Multivitamin 1 tab PO DAILY 05/21/21 10/19/21 History (formulary)] Ubidecarenone [Co Q-10] 100 mg PO DAILY 05/21/21 10/19/21 History Meloxicam [Mobic] 7.5 mg PO DAILY PRN 06/24/21 10/19/21 History Vitamin B Complex 1 each PO DAILY 06/24/21 10/19/21 History Allergies Allergy/AdvReac Type Severity Reaction Status Date / Time gluten Allergy GI ISSUES Verified 10/19/21 11:48 R/T CELIAC milk Allergy Nausea & Verified 10/19/21 11:48 Vomiting & Diarrhea
[~2021-10-22 07:14] MED LIST changes: -LIDOCAINE 1% (10MG/ML) FOR IV START INTRADERMA PRN
[2021-10-22] MEDS ORDERED: LIDOCAINE 1% (10MG/ML) FOR IV START INTRADERMA ONE (07:48)
[2021-10-22 07:51] VITALS: RESP 16; TEMP 97.7
[2021-10-22] MEDS ORDERED: PROPOFOL 10 MG/ML 20 ML VIAL IV ONE (07:51)
--- NOTE | 2021-10-22 08:23 | P.PCN ---
Date of Procedure: 10/22/21 Description of Procedure: PREOPERATIVE DIAGNOSIS: Cecal adenoma POSTOPERATIVE DIAGNOSIS: Cecal adenoma Diverticulosis, sigmoid colon History of sigmoid colectomy OPERATION: Colonoscopy to the ileocecal valve and appendiceal orifice, cecum Colonoscopy with hot snare polypectomy Colonoscopy with injection of Hawa ink, 5 mL ascending colon SURGEON: Silvana Ugarte MD. ANESTHESIA: MAC. INDICATIONS: The patient is an 71-year-old female with unresectable cecal adenoma. She presents today for tattooing for colon resection. Benefits and risks were described and informed consent was obtained. DESCRIPTION OF PROCEDURE: The patient had undergone Sutab prep. The patient had been brought into the operating room and laid in the left lateral decubitus position. After adequate intravenous sedation, the rectum was examined with 2% lidocaine jelly. The prostate was unremarkable. External hemorrhoids were encountered. The rectal tone was within normal limits. No lesions were palpated in the rectal vault. An Olympus colonoscope was advanced until the cecum, ileocecal valve and appendiceal orifice were clearly viewed. The prep was good. Sigmoid diverticulosis was encountered. No evidence of focal colitis was found. Retroflexion of the scope demonstrated grade 2 internal hemorrhoids without active bleeding or inflammation. The colon was desufflated. The patient had tolerated the procedure well. Withdrawal time was over 6 minutes. FINDINGS: Aronchick preparation quality scale 2 (1-5) Internal hemorrhoids, grade 2 External hemorrhoids, grade 2. No arteriovenous malformations. Sigmoid diverticulosis Removal of 1 polyp: - Snare polypectomy ascending colon, 12 mm tubulovillous adenoma polyp removed in piecemeal Injection of Hawa ink 5 mL circumferential at proximal ascending colon/cecum Lesion identified within 5 cm of the ileocecal valve No focal colitis. RECOMMENDATIONS: Mass was removed in piecemeal from prior attempted resection less than 1 year ago, complete surgical resection versus endoscopic surveillance described Plan - Discharge Summary Discharge Rx Participant: No New Discharge Prescriptions: No Action Rosuvastatin [Crestor] 20 mg PO HS Enalapril [Vasotec] 20 mg PO BID Ubidecarenone [Co Q-10] 100 mg PO DAILY Hydrochlorothiazide [hydroCHLOROthiazide] 12.5 mg PO DAILY Calcium Carbonate [Calcium] 600 mg PO DAILY Meloxicam [Mobic] 7.5 mg PO DAILY PRN PRN Reason: Pain Multivitamins, Thera [Multivitamin (formulary)] 1 tab PO DAILY Vitamin B Complex 1 each PO DAILY Discharge Medication List Enalapril [Vasotec] 20 mg PO BID 04/06/18 [History] Rosuvastatin [Crestor] 20 mg PO HS 04/06/18 [History] Calcium Carbonate [Calcium] 600 mg PO DAILY 05/21/21 [History] Hydrochlorothiazide [hydroCHLOROthiazide] 12.5 mg PO DAILY 05/21/21 [History] Multivitamins, Thera [Multivitamin (formulary)] 1 tab PO DAILY 05/21/21 [History] Ubidecarenone [Co Q-10] 100 mg PO DAILY 05/21/21 [History] Meloxicam [Mobic] 7.5 mg PO DAILY PRN 06/24/21 [History] Vitamin B Complex 1 each PO DAILY 06/24/21 [History]
[2021-10-22 09:14] VITALS: BP 133/58; PULSE 74
--- NOTE | 2021-10-22 09:19 | P.DS ---
Providers Date of admission: 10/22/21 Expected date of discharge: 10/22/21 Attending physician: Silvana Ugarte Primary care physician: Eder Morton - Discharge Diagnosis(es) (1) Adenoma of cecum Current Visit: No Status: Acute Hospital Course: Patient is a 71-year-old female who previously had an unresectable lesion of the cecum. She presented today for tattooing including colon resection. Repeat colonoscopy was performed with piecemeal resection of the residual cecal tumor. Additional tattooing performed. With moderate resection of tumor, options for endoscopic surveillance described versus colon resection. Patient opted for endoscopic surveillance due near complete piecemeal resection of cecal adenoma. Patient stable for discharge. Patient Condition at Discharge: Good Plan - Discharge Summary Discharge Rx Participant: No New Discharge Prescriptions: Continue Rosuvastatin [Crestor] 20 mg PO HS Enalapril [Vasotec] 20 mg PO BID Ubidecarenone [Co Q-10] 100 mg PO DAILY Hydrochlorothiazide [hydroCHLOROthiazide] 12.5 mg PO DAILY Calcium Carbonate [Calcium] 600 mg PO DAILY Discontinued Meloxicam [Mobic] 7.5 mg PO DAILY PRN PRN Reason: Pain Multivitamins, Thera [Multivitamin (formulary)] 1 tab PO DAILY Vitamin B Complex 1 each PO DAILY Discharge Medication List Enalapril [Vasotec] 20 mg PO BID 04/06/18 [History] Rosuvastatin [Crestor] 20 mg PO HS 04/06/18 [History] Calcium Carbonate [Calcium] 600 mg PO DAILY 05/21/21 [History] Hydrochlorothiazide [hydroCHLOROthiazide] 12.5 mg PO DAILY 05/21/21 [History] Ubidecarenone [Co Q-10] 100 mg PO DAILY 05/21/21 [History] Follow up Appointment(s)/Referral(s): Silvana Ugarte MD [STAFF PHYSICIAN] - 10/27/21 Patient Instructions/Handouts: Colorectal Polyps (DC), Diverticulosis Diet (GEN), Diverticulosis (DC) Activity/Diet/Wound Care/Special Instructions: AVOID Mobic, meloxicam, ibuprofen, Aleve, aspirin, nonsteroidal anti-inflamma tory drugs, multivitamins until seen in the office 10/27/2021 Discharge Disposition: HOME SELF-CARE
== END 2021-10-22 09:33 | disposition home or self-care (01) ==
LOC: ORWHC2ENDO 07:14
PROVIDERS: ATTEND Surgery Plastic and Reconstructive Surgery
DX: D12.2 Benign neoplasm of ascending colon (principal); K57.30 Diverticulosis of large intestine without perforation or abscess without bleeding; K64.4 Residual hemorrhoidal skin tags; K64.1 Second degree hemorrhoids; Z90.49 Acquired absence of other specified parts of digestive tract; I10 Essential (primary) hypertension; K90.0 Celiac disease; E78.5 Hyperlipidemia, unspecified; M10.9 Gout, unspecified; E11.9 Type 2 diabetes mellitus without complications; M19.90 Unspecified osteoarthritis, unspecified site; Z79.899 Other long term (current) drug therapy; Z97.2 Presence of dental prosthetic device (complete) (partial)
CPT/HCPCS: 86900; 86901; 88305; 86850; 45385; 45381; J2704

== ENCOUNTER → 2022-09-23 | Outpatient (CLI) | payer MEDICARE, OTHER ==
--- NOTE | 2022-09-24 11:21 | MM ---
Reason for Exam: Screening (asymptomatic). Last mammogram was performed 1 year(s) and 3 month(s) ago. Patient History: Menarche at age 16. First Full-Term at age 21. Left ovary removed at age 52. Right ovary removed at age 52. Hysterectomy at age 52. Postmenopausal. 08/01/2015, Benign Core Biopsy on the right side. Risk Values: Charis 5 year model risk: 1.3%. NCI Lifetime model risk: 3.9%. Prior Study Comparison: 10/16/2018 Bilateral Screening Mammogram, [facility]. 02/27/2020 Bilateral Screening Mammogram, [facility]. 06/23/2021 Bilateral Screening Mammogram, [facility]. Tissue Density: The breast tissue is heterogeneously dense. This may lower the sensitivity of mammography. Findings: Analyzed By CAD. Pattern appears symmetrical and stable. Multiple benign spherical calcifications are present greater on the left. A core markers within the right breast. No suspicious groups of microcalcifications, spiculated or lobular masses, architectural distortion or other secondary signs of malignancy are mammographically apparent. Overall Assessment: Benign, BI-RAD 2 Management: Screening Mammogram of both breasts in 1 year. A negative mammogram report should not preclude additional follow up of suspicious palpable abnormalities. Patient should continue monthly self breast exam. A clinical breast exam by your physician is recommended on an annual basis and results should be correlated with mammographic findings. Electronically signed and approved by: Kranthi Fagan D.O. Radiologis
== END | disposition home or self-care (01) ==
LOC: RADMAMWWP 14:35
PROVIDERS: ATTEND Family Medicine
DX: Z12.31 Encounter for screening mammogram for malignant neoplasm of breast (principal); Z78.0 Asymptomatic menopausal state; Z98.890 Other specified postprocedural states
CPT/HCPCS: 77063; 77067

== ENCOUNTER → 2023-02-01 | Outpatient (CLI) | payer MEDICARE, OTHER ==
--- NOTE | 2023-02-02 09:12 | CT ---
EXAMINATION TYPE: CT iac wo con DATE OF EXAM: 02/01/2023 COMPARISON: None HISTORY: right ear pain and drainage CT DLP: 150 mGycm Automated exposure control for dose reduction was used. Contrast: None Technique: Axial images 1 mm thick sections. Reconstructed images in the coronal plane. Study is perf ormed without intravenous contrast. FINDINGS: Maxillary sphenoid and ethmoid and frontal sinuses are essentially clear. A very small retention cyst or polyp could be within the anterior left ethmoid air cell. Ostiomeatal units are patent. Tiny conc montgomery bullosa is present on the left. Left-sided [place] air cell may be present. Mastoid air cells are clear. Incus and malleus have normal orientation. Semicircular canals are normal bilaterally. Cochlea are un remarkable. Middle ears are clear external auditory canals are patent. Internal auditory canals are n ormal without expansion or erosion. No suspicious cerebellar pontine angle masses are evident. Scutum are normal. Attics are clear. IMPRESSION: 1. NO SUSPICION ABNORMALITY TO ACCOUNT FOR RIGHT EAR PAIN AND DRAINAGE.
== END | disposition home or self-care (01) ==
LOC: RADCTMAIN 14:32
PROVIDERS: ATTEND Otolaryngology
DX: H90.A31 Mixed conductive and sensorineural hearing loss, unilateral, right ear with restricted hearing on the contralateral side (principal)
CPT/HCPCS: 70480

== ENCOUNTER → 2023-02-11 | Outpatient (CLI) | payer MEDICARE, OTHER ==
--- NOTE | 2023-02-12 00:36 | MR ---
EXAMINATION TYPE: MR brain and iac wo/w con DATE OF EXAM: 02/11/2023 COMPARISON: 02/01/2023 CT IAC HISTORY: Hearing Loss of Rt Ear CONTRAST: Performed utilizing 5.5 mL intravenous Gadavist gadolinium contrast. TECHNIQUE: Multiplanar, multiecho imaging on a 3.0 Cami magnet is performed through the brain. Atte ntion is paid to the internal auditory canals with thin section imaging. Postcontrast imaging is per formed through the internal auditory canals. FINDINGS:Craniovertebral junction is normal. The pituitary is normal. Optic chiasm is visualized is normal. Orbits as visualized appear unremarkable. Diffusion-weighted imaging is performed. No suspicious hyperintensity is present to suggest an acute intracranial infarct or acute ischemic area. Signal within the brain has scattered areas of hyperintensity which are non-specific but could be rel ated to microvascular ischemic changes. Some changes noted within the brainstem. Thin section imaging is performed through the internal auditory canals and cerebellar pontine angles. No cerebellar pontine angle masses are evident. The internal auditory canals appear normal without expansion or erosion. Semicircular canals and cochlea have a normal appearance. Postcontrast imaging was performed. No suspicious enhancement is evident within the internal audito ry canals or the included portions of the brain. IMPRESSIONS: 1. No suspicious signal change internal auditory canals or petrous ridges to account for right ear he aring loss. 2. Scattered white matter changes which are nonspecific but can be related to microvascular ischemic change.
== END | disposition home or self-care (01) ==
LOC: RADMRIMAIN 15:08
PROVIDERS: ATTEND Otolaryngology
DX: H90.A31 Mixed conductive and sensorineural hearing loss, unilateral, right ear with restricted hearing on the contralateral side (principal); R90.82 White matter disease, unspecified; I67.82 Cerebral ischemia
CPT/HCPCS: 70553; A9585

== ENCOUNTER → 2023-05-09 | Outpatient (CLI) | payer MEDICARE, OTHER ==
[2023-05-09 16:57] LABS: Blood Urea Nitrogen 16.3 mg/dL (9.0-27.0); Carbon Dioxide 27.7 mmol/L (21.6-31.8); Chloride 102 mmol/L (96-109); Potassium 4.2 mmol/L (3.5-5.5); Sodium 140 mmol/L (135-145)
[2023-05-09 17:20] LABS: Basophils # (A) 0.05 X 10*3/uL (0.00-0.10); Eosinophils % (A) 5.8 %; HCT 42.5 % (37.2-46.3); HGB 13.7 d/dL (12.0-15.0); Lymphocytes # (A) 1.41 X 10*3/uL (0.90-5.00); Lymphocytes % (A) 27.2 %; MCHC 32.2 d/dL (32.0-37.0); Mean Platelet Volume 10.8 FL (9.5-12.2); Monocytes # (A) 0.63 X 10*3/uL (0.20-1.00); Monocytes % (A) 12.2 %; NRBC Per 100 WBC 0 X 10*3/uL (0.00-0.01); Neutrophils # (A) 2.78 X 10*3/uL (1.80-7.70); Neutrophils % (A) 53.6 %; Platelet Count 205 X 10*3/uL (140-440); RBC 4.72 X 10*6/uL (4.10-5.20); RDW 12.2 % (11.5-14.5); WBC 5.18 X 10*3/uL (4.50-10.00)
== END | disposition home or self-care (01) ==
LOC: LABWHC1 11:08
PROVIDERS: ATTEND Internal Medicine Cardiovascular Disease
DX: Z01.812 Encounter for preprocedural laboratory examination (principal); R93.9 Diagnostic imaging inconclusive due to excess body fat of patient; R06.02 Shortness of breath
CPT/HCPCS: 36415; 80051; 82565; 84520; 85025

== ENCOUNTER 2023-05-11 06:14 | Day surgery (SDC) | payer MEDICARE, OTHER ==
[2023-05-05 13:53] VITALS: BMI 22.6
[~2023-05-11 06:14] MED LIST changes: +ALPRAZolam 0.25 MG TAB PO PRN; +ALPRAZolam 0.5 MG TAB PO PRN; +ASPIRIN 325 MG TAB PO STA; +ATORVASTATIN 80 MG TAB PO STA; +HEPARIN SODIUM,PORCINE (1 ML) 2,500 UNIT in SODIUM CHLORIDE 0.9% 250 ML IRRIGATION PRN; +HEPARIN SODIUM,PORCINE 10,000 UNIT in SODIUM CHLORIDE 0.9% 1,000 ML IRRIGATION PRN; -LACTATED RINGERS 1,000 ML IV SCH; +NITROGLYCERIN SL TABS 0.4 MG TAB SUBLINGUAL PRN; +SODIUM CHLORIDE 0.9% 1,000 ML in EMPTY BAG 1 BAG IV SCH
[2023-05-11 06:44] VITALS: RESP 18; TEMP 98
[2023-05-11 06:47] LABS: Glucose,Whole Blood 116 mg/dL (70-110)
[2023-05-11] MEDS ORDERED: VERAPAMIL 2.5 MG/ML 2 ML AMP ONE (07:09)
[2023-05-11] MEDS ORDERED: LIDOCAINE 1% INJ 10MG/ML (20 ML MDV) ONE (07:09)
[2023-05-11] MEDS ORDERED: fentaNYL (PF) 50 MCG/ML 2 ML AMP ONE (07:32)
[2023-05-11] MEDS ORDERED: MIDAZOLAM 2 MG/2 ML VIAL IVP ONE (07:35)
[2023-05-11] MEDS ORDERED: LIDOCAINE 1% INJ 10MG/ML (5 ML VIAL-PF) SQ ONE (07:35)
[2023-05-11] MEDS ORDERED: fentaNYL (PF) 50 MCG/ML 2 ML AMP IVP ONE (07:35)
[2023-05-11] MEDS ORDERED: VERAPAMIL SYRINGE (5 MG/10 ML) INTRAARTER ONE (07:37)
[2023-05-11] MEDS ORDERED: ENALAPRILAT 1.25 MG/ML 1 ML VIAL IV ONE (07:40)
[2023-05-11] MEDS ORDERED: ENALAPRILAT 1.25 MG/ML 1 ML VIAL ONE (07:40)
[2023-05-11] MEDS ORDERED: HEPARIN SODIUM 1,000 UN/ML (10ML VL) IV ONE (07:41)
[2023-05-11] MEDS ORDERED: NITROGLYCERIN OINT 1 INCH/GM PACKET TOPICAL ONE ×2 (07:47→07:50)
[2023-05-11] MEDS ORDERED: IOPAMIDOL-370 100ML BTL INJ ONE ×2 (07:50)
--- NOTE | 2023-05-11 08:35 | CC ---
CARDIAC CATHETERIZATION REPORT INDICATION: Exertional shortness of breath with abnormal EKG part of the stress test. PROCEDURE NOTE: After obtaining informed consent, left heart catheterization and coronary angiogram were performed via right radial artery using standard Kayli catheters. The patient tolerated the procedure well without any obvious immediate complications. TR band was used for hemostasis at the end. Right radial artery access was obtained using Seldinger technique. A 6-Malaysian sheath was placed. Catheters and wires were floated into the ascending aorta under fluoroscopic guidance. The patient received verapamil and heparin per protocol. Her blood pressure was elevated. I gave her Vasotec and nitro paste for better blood pressure control. The patient received moderate conscious sedation. Total sedation time was 22 minutes. FINDINGS: 1. Hemodynamics: Left ventricular end-diastolic pressure is 24 mm. There is no significant gradient across the aortic valve. 2. Left Ventriculogram: Left ventriculogram is not performed. 3. Angiographic Data: a.Right coronary artery: Right coronary artery is a dominant vessel, shows calcification, but is free of significant stenosis. b.Left main coronary artery is a normal-sized vessel. There was dampening of the pressure wave pattern on engaging the left coronary artery, probably because of the way the catheter was sitting. There is an atherosclerotic block in the distal left main and proximal LAD, but no focal significant stenotic lesions. Left coronary system is calcified. CONCLUSIONS: [id number] nonobstructive CAD, dampening of the pressure wave pattern probably due to the way catheter was sitting in the left main. Reviewed angiographic data with the on-call heel builder machine. PLAN: I will treat the patient with optimal medical therapy and aggressive risk factor modification including optimal control of her hypertension. I will add nitrates and amlodipine to the current medical regimen. MMODL / IJN: [id number] /
[2023-05-11] MEDS ORDERED: ISOSORBIDE MONONITRATE ER 30 MG TAB.ER.24H PO SCH (09:00)
[2023-05-11] MEDS ORDERED: amLODIPine 10 MG TAB PO SCH (09:00)
[2023-05-11] MEDS ORDERED: RX INFO: IV CONTRAST WAS GIVEN 1 EACH MISC MISCELLANE PRN (09:33)
[2023-05-11] MEDS ORDERED: SODIUM CHLORIDE 0.9% 1,000 ML IV SCH (09:45)
[2023-05-11 11:55] VITALS: BP 159/70; PULSE 56
== END 2023-05-11 11:57 | disposition home or self-care (01) ==
LOC: CATHCVL 06:14
PROVIDERS: ATTEND Internal Medicine Cardiovascular Disease
DX: I25.10 Atherosclerotic heart disease of native coronary artery without angina pectoris (principal); I10 Essential (primary) hypertension; E78.5 Hyperlipidemia, unspecified; E11.9 Type 2 diabetes mellitus without complications; F17.210 Nicotine dependence, cigarettes, uncomplicated; Z82.49 Family history of ischemic heart disease and other diseases of the circulatory system; Z79.899 Other long term (current) drug therapy
CPT/HCPCS: 93458; C1769; C1894; J2250; J2001; J3010; J1644; Q9967

== ENCOUNTER → 2023-06-28 | Outpatient (CLI) | payer MEDICARE, OTHER ==
[2023-06-28 20:12] LABS: HGB 14.2 d/dL (12.0-15.0); MCH 29.8 pg (27.0-32.0); MCV 90.1 FL (80.0-97.0); Mean Platelet Volume 10.7 FL (9.5-12.2); NRBC Per 100 WBC 0 X 10*3/uL (0.00-0.01); Platelet Count 266 X 10*3/uL (140-440); RBC 4.77 X 10*6/uL (4.10-5.20); RDW 12.4 % (11.5-14.5); WBC 6.84 X 10*3/uL (4.50-10.00)
[2023-06-28 23:22] LABS: ALT 21 U/L (8-44); AST 22 U/L (13-35); Albumin/Globulin Ratio 2.17 Ratio (1.60-3.17); Alkaline Phosphatase 79 U/L (41-126); BUN/Creat Ratio 30.91 Ratio (12.00-20.00); Calcium 10.8 mg/dL (8.7-10.3); Chloride 98 mmol/L (96-109); Globulin 2.3 d/dL (1.6-3.3); Glucose 112 mg/dL (70-110); Potassium 4.4 mmol/L (3.5-5.5); Sodium 138 mmol/L (135-145); Total Bilirubin 0.3 mg/dL (0.3-1.2); Total Protein 7.3 d/dL (6.2-8.2)
--- NOTE | 2023-06-29 10:13 | P.PN ---
Progress Note - Text Progress Note Date: 06/29/23 Labs reviewed. Will need re-hydration. Recommend fluid boluses and repeat blood work at hospital.
== END | disposition home or self-care (01) ==
LOC: LABWHC1 12:00
PROVIDERS: ATTEND Surgery Plastic and Reconstructive Surgery
DX: D12.6 Benign neoplasm of colon, unspecified (principal)
CPT/HCPCS: 36415; 80053; 85027; 86850; 86900; 86901

== ENCOUNTER → 2023-08-05 | Outpatient (CLI) | payer MEDICARE, OTHER ==
--- NOTE | 2023-08-05 14:27 | US ---
EXAMINATION TYPE: US kidneys/renal and bladder DATE OF EXAM: 08/05/2023 COMPARISON: CT 07/03/2020 CLINICAL INDICATION: Female, 73 years old with history of N13.30 HYDRONEPHROSIS; Left Renal Cyst seen on CT EXAM MEASUREMENTS: Right Kidney: 7.7 x 4.8 x 3.5 cm Left Kidney: 10.4 x 5.4 x 5.6 cm cyst = 1.3 x 1.3 x 1.5 cm Bladder: wnl Bilateral Jets seen: Yes There is no evidence for hydronephrosis at this point in time. No nephrolithiasis is seen. The urina ry bladder is anechoic. Bilateral ureteral jets are seen. IMPRESSION: 1. No evidence for obstructive uropathy. Cortical medullary differentiation maintained. 2. Simple appearing left renal cyst similar to 07/01/2023 CT
== END | disposition home or self-care (01) ==
LOC: RADUSWWP 12:48
PROVIDERS: ATTEND Urology
DX: N13.30 Unspecified hydronephrosis (principal); N28.1 Cyst of kidney, acquired
CPT/HCPCS: 76770

== ENCOUNTER → 2023-09-26 | Outpatient (CLI) | payer MEDICARE ==
--- NOTE | 2023-09-27 17:33 | MM ---
Reason for Exam: Screening (asymptomatic). Last screening mammogram was performed 12 month(s) ago. Patient History: Menarche at age 16. First Full-Term at age 21. Left ovary removed at age 52. Right ovary removed at age 52. Hysterectomy at age 52. Postmenopausal. 08/01/2015, Benign Core Biopsy on the right side. Risk Values: Charis 5 year model risk: 1.4%. NCI Lifetime model risk: 3.8%. Prior Study Comparison: 02/17/2016 Right Diagnostic Mammogram, [facility]. 09/01/2016 Bilateral Diagnostic Mammogram, [facility]. 09/05/2017 Bilateral Screening Mammogram, [facility]. 10/16/2018 Bilateral Screening Mammogram, [facility]. 02/27/2020 Bilateral Screening Mammogram, [facility]. 06/23/2021 Bilateral Screening Mammogram, [facility]. 09/23/2022 Bilateral MG 3D screening mammo w/cad, [facility]. Tissue Density: The breast tissue is heterogeneously dense. This may lower the sensitivity of mammography. Findings: Analyzed By CAD. Pattern appears symmetrical and stable. Core markers within the right breast. Benign vascular calcification is present bilaterally. Multiple benign spherical calcifications are present. No suspicious groups of microcalcifications, spiculated or lobular masses, architectural distortion or other secondary signs of malignancy are mammographically apparent. Overall Assessment: Benign, BI-RAD 2 Management: Screening Mammogram of both breasts in 1 year. A negative mammogram report should not preclude additional follow up of suspicious palpable abnormalities. Patient should continue monthly self breast exam. A clinical breast exam by your physician is recommended on an annual basis and results should be correlated with mammographic findings. Electronically signed and approved by: Kranthi Fagan D.O. Radiologis
== END | disposition home or self-care (01) ==
LOC: RADBDWWP 13:28
PROVIDERS: ATTEND Family Medicine
DX: Z12.31 Encounter for screening mammogram for malignant neoplasm of breast (principal); Z78.0 Asymptomatic menopausal state
CPT/HCPCS: 77063; 77067

== ENCOUNTER → 2023-09-30 | Outpatient (CLI) | payer MEDICARE ==
--- NOTE | 2023-10-01 14:50 | BD ---
EXAMINATION TYPE: Axial Bone Density DATE OF EXAM: 09/30/2023 CLINICAL HISTORY: 73 years old Female. ICD-10 CODE: M89.9 DISORDER OF BONE, UNSPECIFIED Height: 61" Weight: 124.7lbs FRAX RISK QUESTIONS: Alcohol (3 or more units per day): No Family History (Parent hip fracture): Yes, Mother Glucocorticoids (More than 3mos): No (Ex: prednisone, prednisolone, methylprednisolone, dexamethasone, and hydrocortisone). History of Fracture in Adulthood: Yes Secondary Osteoporosis: 1. Type 1 Diabetes: No 2. Hyperthyroidism: No 3. Menopause before 45: No 4. Malnutrition: No 5. Chronic liver disease: No Rheumatoid Arthritis: No Current Tobacco Use: No RISK FACTORS HISTORY OF: Hip Fracture (Right/Left): No Spine Fracture: No History of Wrist Fracture: No Surgery to Spine/Hip(right/left)/Wrist (right/left): No Family History of Osteoporosis: Yes, mother and materal aunt Active: Yes Diet low in dairy products/other sources of calcium: Yes Postmenopausal woman: Yes Lost more than 2 inches in height since high school: No Frequent falls: No Poor Health: No Hyperparathyroidism: No Adrenal Insufficiency: No MEDICATIONS: Prednisone or other steroids: No Thyroid Medications: No Osteoporosis Medications: Additional Medications: Occasional Vitamin D, Calcium Additional History: N/A EXAM MEASUREMENTS: Bone mineral densitometry was performed using the Breathometer System. Bone mineral density as measured about the Lumbar spine is: ----- L1-L4(G/cm2): 0.992 T Score Values are as follows: ----- L1: -2.8 ----- L2: -1.8 ----- L3: -1.3 ----- L4: -0.7 ----- L1-L4: -1.6 Z Score Values are as follows: ----- L1: -0.9 ----- L2: 0.1 ----- L3: 0.7 ----- L4: 1.3 ----- L1-L4: 0.4 Bone mineral density has: decreased -6.1% since study of: 06/23/2021 Bone mineral density about the R hip (g/cm2): 0.797 Bone mineral density about the L hip (g/cm2): 0.802 T Score values are as follows: -----R Neck: -1.9 -----L Neck: -2.4 -----R Total: -1.7 -----L Total: -1.6 Z Score values are as follows: -----R Neck: 0.0 -----L Neck: -0.4 -----R Total: 0.1 -----L Total: 0.1 Bone mineral density has: decreased -4.5% since study of: 06/23/2021 FRAX%s: The graph provided illustrates a 34.0% chance for a major osteoporotic fx and a 13.9% chance for the hips probability for fx in 10 years time. IMPRESSION: Osteopenia (T Score between -2.5 and -1). There is slightly increased risk of fracture and the patient may be considered for treatment. Re-Screen 2-5 years. NOTE: T-SCORE=SD OF THE YOUNG ADULT MEAN.
== END | disposition home or self-care (01) ==
LOC: RADBDWWP 10:58
PROVIDERS: ATTEND Family Medicine
DX: M81.0 Age-related osteoporosis without current pathological fracture (principal); M85.89 Other specified disorders of bone density and structure, multiple sites; Z78.0 Asymptomatic menopausal state
CPT/HCPCS: 77080

== ENCOUNTER → 2024-11-29 | Outpatient (CLI) | payer MEDICARE ==
--- NOTE | 2024-11-29 12:15 | MM ---
Reason for Exam: Screening (asymptomatic). Last mammogram was performed 1 year(s) and 2 month(s) ago. Patient History: Menarche at age 16. First Full-Term at age 21. Left ovary removed at age 52. Right ovary removed at age 52. Hysterectomy at age 52. Postmenopausal. 08/01/2015, Benign Core Biopsy on the right side. Risk Values: Charis 5 year model risk: 1.4%. NCI Lifetime model risk: 3.6%. Prior Study Comparison: 06/23/2021 Bilateral Screening Mammogram, [facility]. 09/23/2022 Bilateral MG 3D screening mammo w/cad, [facility]. 09/26/2023 Bilateral MG 3D screening mammo w/cad, [facility]. Tissue Density: The breasts are heterogeneously dense, which may obscure small masses. Findings: Analyzed By CAD. There is no suspicious group of microcalcifications or new suspicious mass in either breast. Overall Assessment: Benign, BI-RAD 2 Management: Screening Mammogram of both breasts in 1 year. . Patient should continue monthly self-breast exams. A clinical breast exam by your physician is recommended on an annual basis. This exam should not preclude additional follow-up of suspicious palpable abnormalities. Note on Charis scores and lifetime risk: 1. A Charis score greater than 3% is considered moderate risk. If this is the case, consider specialist referral to assess eligibility for a risk reducing agent. 2. If overall lifetime risk for the development of breast cancer is 20% or higher, the patient may qualify for future screening with alternating mammogram and breast MRI. [facility], , 11/29/2024 12:13 PM. Electronically signed and approved by: José Puente M.D. Radiologis
== END | disposition home or self-care (01) ==
LOC: RADMAMWWP 10:42
PROVIDERS: ATTEND Family Medicine
DX: Z12.31 Encounter for screening mammogram for malignant neoplasm of breast (principal); R92.333 Mammographic heterogeneous density, bilateral breasts; Z78.0 Asymptomatic menopausal state
CPT/HCPCS: 77063; 77067